=== PATIENT | male | born 1985 | race Two or more races ===

== ENCOUNTER 2018-10-03 20:18 | Inpatient (IN) | payer OTHER ==
[~2018-10-03] VITALS: Ht 188 cm; Wt 127.9 kg
[2018-10-03 20:34] VITALS: Ht 188 cm; Wt 127.9 kg
[2018-10-03 21:55] LABS: PLATELET COUNT 225 x10^3mcL (130-400); RED CELL DISTRIBUTION WIDTH 12.5 % (11.5-14.5)
[2018-10-03 22:00] LABS: CALCIUM 7.8 mg/dL (8.5-10.1); CARBON DIOXIDE 27.5 mmol/L (21-32); CHLORIDE SERUM 93 mmol/L (98-107); CREATININE SERUM 0.5 mg/dL (0.7-1.3); GFR1 > 60 mL/min; GLUCOSE SERUM 281 mg/dL (74-106); SODIUM SERUM 130 mmol/L (136-145)
[2018-10-03 22:04] LABS: ALKALINE PHOSPHATASE 84 U/L (46-116); ALT/SGPT 61 U/L (16-63); AST/SGOT 25 U/L (15-37); BILIRUBIN TOTAL 0.8 mg/dL (0.20-1.00); LIPASE 49 IU/L (73-393); TOTAL PROTEIN, SERUM 6.3 g/dL (6.4-8.2)
[2018-10-03 22:05] LABS: ALBUMIN 2.1 g/dL (3.4-5.0)
[2018-10-03 22:24] LABS: BAND NEUTROPHIL 20 % (0-10); METAMYELOCTE 1 % (0-2); MONOCYTE 10 % (0-7); SEGMENTED NEUTROPHILS 58 % (37-75)
[2018-10-03 22:28] LABS: PLATELET MORPHOLOGY PLATELETS NORMAL; rbc morphology (normal/abnorm) NORMAL (NORMAL)
[2018-10-04 00:25] LABS: T3 TOTAL 0.69 ng/mL
[2018-10-04 00:28] LABS: FREE T4 1.49 ng/dL (0.76-1.46); FREE THYROXINE INDEX 2.6 ug/dL (1.4-4.5); T4(THYROXINE) 6.4 ug/dL (4.7-13.3)
[2018-10-04 00:40] VITALS: BP 152/96
[2018-10-04 00:47] LABS: microscopic required? YES; urine erythrocyte NEGATIVE (NEGATIVE)
[2018-10-04 02:00] LABS: AMPHETAMINE QUAL UR NONE DETECTED (See below)
[2018-10-04 06:16] VITALS: BP 123/80
[2018-10-04 07:27] LABS: CALCIUM 7.8 mg/dL (8.5-10.1); CARBON DIOXIDE 25.7 mmol/L (21-32); CHLORIDE SERUM 96 mmol/L (98-107); CREATININE SERUM 0.5 mg/dL (0.7-1.3); GFR1 > 60 mL/min; GLUCOSE SERUM 263 mg/dL (74-106); POTASSIUM SERUM 3.5 mmol/L (3.5-5.1); SODIUM SERUM 132 mmol/L (136-145)
[2018-10-04 08:25] LABS: BASOPHIL % 0.2 % (0-2); PLATELET COUNT 224 x10^3mcL (130-400); RED CELL DISTRIBUTION WIDTH 12.9 % (11.5-14.5)
[2018-10-04 09:41] VITALS: BP 133/81
[2018-10-04 16:29] VITALS: BP 132/86
[2018-10-04 20:34] VITALS: BP 143/92
[2018-10-05 05:51] VITALS: BP 143/96
[2018-10-05 06:17] LABS: PLATELET COUNT 265 x10^3mcL (130-400); RED CELL DISTRIBUTION WIDTH 13.1 % (11.5-14.5)
[2018-10-05 06:42] LABS: BASOPHIL % 0 % (0-2)
[2018-10-05 07:07] LABS: CARBON DIOXIDE 24.9 mmol/L (21-32); CHLORIDE SERUM 97 mmol/L (98-107); CREATININE SERUM 0.5 mg/dL (0.7-1.3); GFR1 > 60 mL/min; GLUCOSE SERUM 226 mg/dL (74-106); MAGNESIUM 1.8 mg/dL (1.8-2.4); PHOSPHOROUS 3.1 mg/dL (2.5-4.9); POTASSIUM SERUM 3.4 mmol/L (3.5-5.1); SODIUM SERUM 133 mmol/L (136-145)
[2018-10-05 10:22] VITALS: BP 146/95
[2018-10-05 15:05] VITALS: BP 128/81
[2018-10-05 17:44] VITALS: BP 118/78
[2018-10-05 21:12] VITALS: BP 121/71
[2018-10-06 05:30] VITALS: BP 127/78
[2018-10-06 06:34] LABS: PLATELET COUNT 261 x10^3mcL (130-400); RED CELL DISTRIBUTION WIDTH 12.7 % (11.5-14.5)
[2018-10-06 06:36] LABS: CALCIUM 7.9 mg/dL (8.5-10.1); CARBON DIOXIDE 26.2 mmol/L (21-32); CHLORIDE SERUM 100 mmol/L (98-107); CREATININE SERUM 0.6 mg/dL (0.7-1.3); GFR1 > 60 mL/min; GLUCOSE SERUM 202 mg/dL (74-106); MAGNESIUM 1.6 mg/dL (1.8-2.4); POTASSIUM SERUM 3.3 mmol/L (3.5-5.1); SODIUM SERUM 133 mmol/L (136-145)
[2018-10-06] MEDS ORDERED: KEFLEX500 M1 PO (10:06)
[2018-10-06 10:27] VITALS: BP 152/98
[2018-10-06 11:48] VITALS: BP 152/98
[2018-10-06 11:56] LABS: ATYPICAL LYMPH 2 %; BAND NEUTROPHIL 19 % (0-10); BASOPHIL 0 % (0-2); MONOCYTE 7 % (0-7); SEGMENTED NEUTROPHILS 70 % (37-75)
[2018-10-06 11:57] LABS: rbc morphology (normal/abnorm) ABNORMAL (NORMAL)
[2018-10-06 11:58] LABS: PLATELET MORPHOLOGY PLATELETS NORMAL
[2018-10-06 12:57] VITALS: BP 152/98
== END 2018-10-06 14:09 | disposition home or self-care (01) | DRG 417 ==
LOC: ED 20:18 → MU 23:28
PROVIDERS: Emergency Medicine; Family Medicine; ADMIT Internal Medicine
PROC: 0FT44ZZ Resection of Gallbladder, Percutaneous Endoscopic Approach (ICD-10-PCS; principal; 2018-10-03)
DX: K80.10 Calculus of gallbladder with chronic cholecystitis without obstruction (principal); E43 Unspecified severe protein-calorie malnutrition; E87.1 Hypo-osmolality and hyponatremia; E87.6 Hypokalemia; E11.65 Type 2 diabetes mellitus with hyperglycemia; E05.90 Thyrotoxicosis, unspecified without thyrotoxic crisis or storm; I10 Essential (primary) hypertension; N20.0 Calculus of kidney; K76.0 Fatty (change of) liver, not elsewhere classified; D35.01 Benign neoplasm of right adrenal gland; Z68.35 Body mass index [BMI] 35.0-35.9, adult; Z79.84 Long term (current) use of oral hypoglycemic drugs
CPT/HCPCS: 36600; 82962; 84439; J0330; J1170; J1815; J1940; J1956; J2250; J2270; J2405; J2543; J2765; J3010; J3490; J7030; Q0092

== ENCOUNTER 2018-10-07 07:14 | Inpatient (IN) | payer OTHER ==
[~2018-10-07] VITALS: Ht 188 cm; Wt 153.8 kg
[2018-10-07 00:58] VITALS: BP 151/111
[~2018-10-07 07:14] MED LIST: KEFLEX500 M1 PO
--- NOTE | 2018-10-07 07:30 | NUR ---
PT PRESENTS TO ED WITH C/O SOB WITH N/V S/P CHOLECYSTECTOMY THURSDAY. PT WAS ADMITTED [place] [facility] [place] DIAGNOSED WITH GALLSTONES. PT WENT HOME YESTERDAY AND REPORTS ABD "SWELLING" IS WORSE WELL VOMITING COFFEE GROUND EMESIS PT DENIES ABD PAIN AT THIS TIME. PT IS AAOX4 RESP EVEN LABORED LUNGS CTA ABD IS ROUND FIRM AND DISTENDED 5 ABDOMINAL INCISIONS NOTED COVERED GAS DISPENSER TO ED WITH BANDAIDS. SKIN IN COOL PALE AND DIAPHORETIC. PT IS GOWNED PLACED ON FULL CM SINUS TACH PT IN POSITION OF COMFORT AT THIS TIME. FAMILY AT BEDSIDE MSE COMPLETED BY DR BOWMAN AWAITING FURTHER ORDERS WILL MONITOR.
--- NOTE | 2018-10-07 07:30 | NUR ---
LAB AT BEDSIDE FOR BLOOD DRAW.
--- NOTE | 2018-10-07 07:35 | NUR ---
EKG DONE BY AGUSTÍN ELIZABETH
--- NOTE | 2018-10-07 07:38 | NUR ---
ABG BLOOD DRAW IN PROGRESS
--- NOTE | 2018-10-07 07:50 | NUR ---
PT PLACED ON O2 AT 2L VIA NC
[2018-10-07 08:03] LABS: PLATELET COUNT 280 x10^3mcL (130-400); RED CELL DISTRIBUTION WIDTH 12.7 % (11.5-14.5)
--- NOTE | 2018-10-07 08:14 | NUR ---
PORTABLE CXR AT BEDSIDE AT THIS TIME
[2018-10-07 08:21] LABS: ALKALINE PHOSPHATASE 81 U/L (46-116); ALT/SGPT 89 U/L (16-63); AST/SGOT 25 U/L (15-37); BILIRUBIN TOTAL 0.85 mg/dL (0.20-1.00); CALCIUM 8.4 mg/dL (8.5-10.1); CARBON DIOXIDE 22.4 mmol/L (21-32); CHLORIDE SERUM 94 mmol/L (98-107); CREATININE SERUM 1.6 mg/dL (0.7-1.3); GFR1 53 mL/min; POTASSIUM SERUM 3.5 mmol/L (3.5-5.1); SODIUM SERUM 131 mmol/L (136-145); TOTAL PROTEIN, SERUM 6.3 g/dL (6.4-8.2)
[2018-10-07 08:25] LABS: T3 TOTAL 0.53 ng/mL
[2018-10-07 08:30] LABS: ALBUMIN 1.5 g/dL (3.4-5.0)
[2018-10-07 08:32] LABS: GLUCOSE SERUM 463 mg/dL (74-106)
--- NOTE | 2018-10-07 08:35 | NUR ---
1ST LITER OF NS BOLUS COMPLETED. PT TO CT AT THIS TIME VIA GURNEY WILL START 2ND NS BOLUS WHEN HE RETURNS. PT IN NO DISTRESS SINUS TACH ON CM AT 140'S ER MD NOTIFIED. NO NEW ORDERS WILL MONITOR
--- NOTE | 2018-10-07 08:50 | NUR ---
PT BACK FROM CT WITH NO INCIDENT. PT PLACED ON FULL CM AND O2 VIA NC AT 2L. NS 2ND LITER BOLUS STARTED AT THIS TIME. IV SITE PATENT. WILL MONITOR.
[2018-10-07 09:21] LABS: FREE T4 1.59 ng/dL (0.76-1.46)
--- NOTE | 2018-10-07 09:21 | NUR ---
NG TUBE INSERTION TO R NOSTRIL SUCCESSFULL COFFEE GROUND GI CONTENTS NOTED NG TUBE SECURED. PROCEDURE TOLERATED WELL BY PT.
[2018-10-07 09:22] LABS: FREE THYROXINE INDEX 2.2 ug/dL (1.4-4.5); T4(THYROXINE) 5.2 ug/dL (4.7-13.3)
--- NOTE | 2018-10-07 09:22 | NUR ---
CT RESULTS RECEIVED FROM LAB.
--- NOTE | 2018-10-07 09:27 | NUR ---
PORTABLE CXR FOR NG TUBE PLACEMENT CONFIRMATION IN PROGRESS
[2018-10-07 09:30] LABS: BAND NEUTROPHIL 43 % (0-10); BASOPHIL 0 % (0-2); SEGMENTED NEUTROPHILS 44 % (37-75)
[2018-10-07 09:31] LABS: PLATELET MORPHOLOGY PLATELETS NORMAL; rbc morphology (normal/abnorm) NORMAL (NORMAL)
[2018-10-07 09:32] LABS: ERYTHROCYTE SED RATE 35 mm/hr (0-15)
--- NOTE | 2018-10-07 09:39 | NUR ---
POC DISCUSSED WITH PT AND PTS SISTER.
[2018-10-07 09:47] LABS: CK-MB 1.1 ng/mL (0-3.6)
--- NOTE | 2018-10-07 10:15 | NUR ---
DR AZEVEDO AT BEDSIDE DISCUSSING PROCEDURE WITH FAMILY ASSESSING NG TUBE CONTENTS.
--- NOTE | 2018-10-07 10:18 | NUR ---
APPROX 500CC'S OF COFFEE GROUND EMESIS SUCTIONED. FROM NG TUBE.
--- NOTE | 2018-10-07 10:36 | NUR ---
1000ML'S OF COFFEE GROUND EMESIS SUCTIONED FROM NG TUBE
--- NOTE | 2018-10-07 10:36 | NUR ---
KUB PORTABLE XRAY AT BEDSIDE PER DR AZEVEDO VERBAL ORDERS TO ASSESS ABD DISTENTION POST 1000ML'S OF COFFEE GROUND CONTENTS SUCTIONED VIA NG TUBE
--- NOTE | 2018-10-07 10:44 | NUR ---
PT REPOSITIONED FOR PTS COMFORT. NG TUBE DRAINING SLOWLY BY GRAVITY INSTRUCTED BY DR AZEVEDO. PT IN NO DISTRESS DENIES ANY PAIN REMAINS ON FULL CM SINUS TACH WILL MONITOR
[2018-10-07 11:46] LABS: C REACTIVE PROTEIN 45.1 mg/dL (<=0.9)
--- NOTE | 2018-10-07 11:56 | NUR ---
AWAITING FOR OR STAFF TO TRANSPORT PT IN FOR SURGERY. PT AAOX4 NO DISTRESS SINUS TACH ON CM HR 136. PT DENIES ANY PAIN. NG TUBE NO LONGER DRAINING VIA GRAVITY, DENISSE VALVE RE-ATTACHED. NO ACTIVE N/V WILL CONTINUE TO MONITOR.
--- NOTE | 2018-10-07 12:19 | NUR ---
SPOKE TO KELLI IN OR. PT TO GO TO ICU UNIT FIRST BEFORE GOING TO OR. PT MADE AWARE
--- NOTE | 2018-10-07 12:22 | NUR ---
REPORT GIVEN TO DOTTIE BALTAZAR IN ICU FLOOR
--- NOTE | 2018-10-07 12:26 | NUR ---
PT TO ICU FLOOR VIA GURNEY ON PORTABLE CM SINUS TACH NO DISTRESS FAMILY ACCOMPANYING PT. DOTTIE BALTAZAR RESUMING CARE OF PT IN ICU
--- NOTE | 2018-10-07 12:30 | NUR ---
PT ARRIVED FROM ED VIA GURNEY AT THIS TIME ACCOMPANIED BY RN AND ERT. TRANSFERRED SELF TO ICU BED. AAOX4. SPEECH CLEAR AND APPROPRIATE. NO FACIAL DROOP. 2L NC IN PLACE. CHEST EXPANSION SYMM, BREATHING EVEN, LABORED. NO COUGH NOTED. RIGHT NGT SECURED AND INTACT. ABD DISTENDED, FIRM. VOIDS TO URINAL. NO EDEMA NOTED. CAP REFILL IMM. SODA DRY HOUSE OPERATOR ATTACHED, SINUS TACHYCARDIA HR 130-140. O2 SAT 91% ON MONITOR. PULSES MODERATE X4. EXTREMITIES WARM, DRY AND [place]. LFA 20G PERIPHERAL IV SITE WNL AND DRESSING CDI. BED IN LOWEST POSITION, CALL LIGHT WITHIN REACH AND THREE SIDERAILS UP.
--- NOTE | 2018-10-07 12:45 | NUR ---
O2 SAT 91% ON MONITOR. 2L NC INCREASED TO 4L NC. O2 SAT NOW 95%. PT ENCOURAGED TO TAKE DEEP BREATHS THROUGH NOSE. VERBALIZES UNDERSTANDING
--- NOTE | 2018-10-07 13:01 | NUR ---
REPORT GIVEN TO JODIE BOOM WORKER AT THIS TIME. ALL QUESTIONS ADDRESSED
--- NOTE | 2018-10-07 13:08 | NUR ---
JANNETH DRILLER MACHINE CALLED AT THIS TIME INFORMED OF ELEVATED GLUCOSE. SPOTCHECK ACCUCHECK BEING PERFORMED AT THIS TIME. DR. LAYNE REQUESTS BS <250
--- NOTE | 2018-10-07 13:10 | NUR ---
SPOT CHECK BS 328. A JAMA SEPTIC TANK SERVICE TECHNICIAN MADE AWARE. TELEPHONE ORDER FOR SLIDING SCALE INSULIN, ACCUCHEKS, D50 AND EDUCATION. REPEATED BACK AND CONFIRMED
--- NOTE | 2018-10-07 13:25 | NUR ---
SPOKE WITH ERNESTO ALARM SECURITY OR SURVEILLANCE MONITOR REGARDING BS. STATES THEY WILL SPOT CHECK IN OR.
--- NOTE | 2018-10-07 13:35 | NUR ---
PT TAKEN TO OR VIA BED AT THIS TIME BY JANNETH VETERANS SERVICE REPRESENTATIVE AND NATALIE FISHER ON CM.
[2018-10-07 13:44] VITALS: BP 131/78
[2018-10-07 16:02] LABS: CALCIUM 7.5 mg/dL (8.5-10.1); CARBON DIOXIDE 24.1 mmol/L (21-32); CHLORIDE SERUM 101 mmol/L (98-107); GFR1 > 60 mL/min; GLUCOSE SERUM 315 mg/dL (74-106); POTASSIUM SERUM 3.2 mmol/L (3.5-5.1); SODIUM SERUM 134 mmol/L (136-145)
[2018-10-07 17:07] LABS: PLATELET COUNT 251 x10^3mcL (130-400); RED CELL DISTRIBUTION WIDTH 13.1 % (11.5-14.5)
[2018-10-07 17:18] LABS: MONOCYTE 2 % (0-7); SEGMENTED NEUTROPHILS 67 % (37-75)
[2018-10-07 17:19] LABS: BAND NEUTROPHIL 15 % (0-10); BASOPHIL 0 % (0-2); PLATELET MORPHOLOGY PLATELETS NORMAL; rbc morphology (normal/abnorm) NORMAL (NORMAL)
[2018-10-07 17:26] LABS: CALCIUM 7.1 mg/dL (8.5-10.1); CARBON DIOXIDE 26.8 mmol/L (21-32); CHLORIDE SERUM 103 mmol/L (98-107); GFR1 > 60 mL/min; GLUCOSE SERUM 237 mg/dL (74-106); POTASSIUM SERUM 3.5 mmol/L (3.5-5.1); SODIUM SERUM 137 mmol/L (136-145)
[2018-10-07 17:32] LABS: ALKALINE PHOSPHATASE 58 U/L (46-116); ALT/SGPT 68 U/L (16-63); AST/SGOT 30 U/L (15-37); BILIRUBIN TOTAL 0.4 mg/dL (0.20-1.00); TOTAL PROTEIN, SERUM 3.9 g/dL (6.4-8.2)
--- NOTE | 2018-10-07 18:17 | NUR ---
DR. RAMÍREZ ON UNIT, INFORMED PT REMAINS IN OR AT THIS TIME. UPDATED ON PT'S STATUS. NO ORDERS AT THIS TIME
--- NOTE | 2018-10-07 19:10 | NUR ---
RECEIVED REPORT FROM DOTTIE BALTAZAR. PT REMAIMS IN OR AT THIS TIME
--- NOTE | 2018-10-07 20:12 | NUR ---
RECEIVED REPORT FROM VISITOR SERVICES SPECIALISTGIOVANNY CHANDLER. PT HAD A DIAGNOSTIC LAP CONVERTED TO EXPLORATORY LAP ENTEROTOMY FOR DECOMPRESSION TRANSVERESE COLON RESECTION OF OBSTRUCTING LEFT COLON TUMOR WITH ANASTOMOSIS AND TRANSVERSE COLOSTOMY AND JEFFREY DRAIN. PT UNDERWENT GENERAL ANESTHESIA. PT HAS ONE CLOSED INCISION WITH SUTURES AND RANI. INCISION IS COVERED WITH XEROFORM, 4X4 GAUZE, ABD PAD, TAPE, AND ABD BINDER. PT WAS INSERTED A 14 FR LOOMIS CATH, 500 ML OF TOTAL URINE OUTPUT. PT HAS A JEFFREY DRAIN SIZE 10. PT WAS NOT GIVEN ABX PREOP. EBL 200 ML. 7 BAGS OF LR WAS GIVEN. CURRENT VENT SETTINGS: AC MODE, VT 650, RR 12, PEP 10, FIO2 100%.
--- NOTE | 2018-10-07 21:25 | NUR ---
RECEIVED PT FROM OR ACCOMPANIED BY 2 OR NURSES AND ANESTHESIOLOGIST. PT CONNECTED TO FULL TEXTILE BROKER, VITALS READING: HR 170, BP 128/71 MAP 95, RR 29, SPO2 91%, AXILLARY TEMP 98.5. PT IS INTUBATED AND ON NO SEDATION. PT OPENS EYES TO TACTILE STIMULI. PT NOT FOLLOWING COMMANDS AT THIS TIME. PUPILS WITH SLUGGISH RESPONSE TO LIGHT, 3 MM BILAT. GAG REFLEX PRESENT. 80 ETT INTACT/SECURED, 23 CM @ LL. RIGHT NARE NGT IN PLACE, NGT PLACED ON LIS PER DR. AZEVEDO ORDER WITH COFFEE GROUND DRAINAGE NOTED. ETT CONNECTED TO VENT, VENT SETTINGS: VCV/AC MODE, VT 500, RATE 12, PEEP 5, FIO2 100%. BREATHING IS E/U. SYMMETRICAL CHEST EXPANSION NOTED. LUNGS SOUND CLEAR TO BUL AND DIMING TO BBA. PALPABLE PULSES X4 EXTREMITIES. PT IS DIAPHORETIC, SKIN IS COOL AND MOIST. NO EDEMA NOTED. RH AND LFA IV'S REMAIN IN PLACE WITH NO S/S OF INFILTRATION NOTED. RIJ CENTRAL LINE IN PLACE WITH DRESSING CDI, INFUSING LEVOPHED @ 24 MCG/MIN AND LR INFUSING. RIGHT RADIAL ARTERIAL LINE IN PLACE. CVP=7. ABD IS DISTENDED. LEFT ABDOMINAL INCISION WITH JEFFREY DRAIN IN PLACE DRAINING SANGUINOUS DRAINAGE, COVERED WITH ABD PAD AND BINDER WITH DRESSING CDI. RUQ ABD COLOSTOMY WITH JEFFREY DRAIN IN PLACE DRAINING SANGUINOUS DRAINAGE. BOWEL SOUNDS HYPOACTIVE X4 QUADDRANTS. LOOMIS IS INTACT/SECURED DRAINING VIA GRAVITY WITH LIEN COLORED URINE. NO SCROTAL EDEMA NOTED. ECCHYMOSIS NOTED TO BUE. BED IN LOW POSITION. CALL LIGHT IN REACH. WILL CONT TO MONITOR
--- NOTE | 2018-10-07 21:29 | NUR ---
NIBP 128/71 MAP 96. LEVOPHED TITRATED TO 18 MCG/MIN
--- NOTE | 2018-10-07 21:29 | NUR ---
ARTERIAL BP 128/71 MAP 96. LEVOPHED TITRATED TO 18 MCG/MIN
[2018-10-07 21:30] VITALS: BP 131/123
--- NOTE | 2018-10-07 21:30 | NUR ---
PER DR. DONOVAN, PT RECEIVED 350 MCG OF FENTANYL, 2 MG OF DILAUDID, 10 LITERS OF CRYSTALLOID FLUID, AND 500 ML OF ALBUMIN
--- NOTE | 2018-10-07 21:33 | NUR ---
ARTERIAL BP 131/123 MAP 126. LEVOPHED TITRATED TO 14 MCG/MIN
--- NOTE | 2018-10-07 21:33 | NUR ---
NIBP 131/123 MAP 126. LEVOPHED TITRATED TO 14 MCG/MIN
--- NOTE | 2018-10-07 21:33 | NUR ---
ARTERIAL BP 131/123 MAP 126. LEVOPHED TITRATED TO 14 MCG/MIN
--- NOTE | 2018-10-07 21:40 | NUR ---
X-RAY TECH AT BEDSIDE FOR CENTRAL LINE PLACEMENT VERIFICATION
--- NOTE | 2018-10-07 21:45 | NUR ---
ARTERIAL BP 107/47 MAP 74. LEVOPHED TITRATED TO 12 MCG/MIN
--- NOTE | 2018-10-07 21:45 | NUR ---
NIBP 107/47 MAP 74. LEVOPHED TITRATED TO 12 MCG/MIN
--- NOTE | 2018-10-07 22:00 | NUR ---
PT'S HR 160'S. PT OPENING EYES TO TACTILE STIMULI. VERSED INITIATED AT THIS TIME @ 1 MG/HR AND FENTANYL @ 1 MCG/KG/HR. WILL CONT TO MONITOR
--- NOTE | 2018-10-07 22:00 | NUR ---
ARTERIAL BP 82/35 MAP 55. LEVOPHED TITRATED TO 14 MCG/MIN
--- NOTE | 2018-10-07 22:17 | NUR ---
ARTERIAL MAP 61. LEVOPHED TITRATED TO 16 MCG/MIN
--- NOTE | 2018-10-07 22:18 | NUR ---
BOLUS INITITATED AT THIS TIME PER EMAR ORDER.
--- NOTE | 2018-10-07 22:18 | NUR ---
DR. TRUJILLO AT BEDSIDE. UPDATED ON PT'S STATUS. MADE AWARE PT'S HR IS IN THE 150'S AND THE BP MAP HAS BEEN TRENDING IN THE HIGH 50'S. PER DR. TRUJILLO, INFUSE 1 LITER BOLUS AT THIS TIME. SHE WILL ORDER NEOSYNEPHRINE. RECEIVED VERBAL ORDER FROM DR. CHAN TO NOT MAX LEVOPHED. WILL CARRY OUT ORDER
--- NOTE | 2018-10-07 22:30 | NUR ---
ARTERIAL BP 86/46 MAP 61. LEVOPHED TITRATED TO 18 MCG/MIN
--- NOTE | 2018-10-07 22:36 | NUR ---
NEOSYNEPRHINE INITIATED AT THIS TIME @ 50 MCG/MIN. ARTERIAL MAP 58.
--- NOTE | 2018-10-07 22:41 | NUR ---
DR. FINCH AT BEDSIDE. UPDATED ON PT'S STATUS. PER DR. FINCH, DC ROCEPHIN AND FLAGYL ABX. WILL CARRY OUT ORDER
--- NOTE | 2018-10-07 22:45 | NUR ---
PT IS OPENING EYES TO VERBAL STIMULI, ABLE TO FOLLOW COMMANDS AT THIS TIME. RSS=3. FENTANYL TITRATED TO 1.5 MCG/KG/HR AND VERSED TITRATED TO 3 MG/HR. WILL CONT TO MONITOR
--- NOTE | 2018-10-07 22:56 | NUR ---
ARTERIAL BP MAP 57. NEOSYNEPHRINE TITRATED TO 75 MCG/MIN
[2018-10-07 23:00] VITALS: BP 74/42; BP 81/44
--- NOTE | 2018-10-07 23:00 | NUR ---
ARTERIAL BP 74/42, MAP 55. NEOSYNEPHRINE TITRATED TO 75 MCG/MIN
--- NOTE | 2018-10-07 23:00 | NUR ---
ARTERIAL BP 74/42, MAP 55. NEOSYNEPHRINE TITRATED TO 100 MCG/MIN
--- NOTE | 2018-10-07 23:15 | NUR ---
ARTERIAL BP 81/44 MAP 58. NEOSYNEPHRINE TITRATED TO 100 MCG/MIN
--- NOTE | 2018-10-07 23:15 | NUR ---
ARTERIAL BP 81/44 MAP 58. NEOSYNEPHRINE TITRATED TO 100 MCG/MIN
--- NOTE | 2018-10-07 23:30 | NUR ---
ARTERIAL BP 85/45 MAP 60. NEOSYNEPHRINE TITRATED TO 125 MCG/MIN
--- NOTE | 2018-10-07 23:45 | NUR ---
ARTERIAL BP 83/44 MAP 59. NEOSYNEPHRINE TITRATED TO 150 MCG/MIN
--- NOTE | 2018-10-07 23:45 | NUR ---
ARTERIAL BP 83/77 MAP 59. NEOSYNEPHRINE TITRATED TO 125 MCG/MIN
[2018-10-08] VITALS (20 sets, daily range): BP systolic 79–121; BP diastolic 36–70
--- NOTE | 2018-10-08 | NUR ---
ARTERIAL BP 84/45 MAP 60. NEOSYNEPHRINE TITRATED TO 175 MCG/MIN
--- NOTE | 2018-10-08 00:15 | NUR ---
ARTERIAL BP 87/46, MAP 61. NEOSYNEPHRINE TITRATED TO 150 MCG/MIN
--- NOTE | 2018-10-08 00:45 | NUR ---
ARTERIAL BP 81/46 MAP 60. NEOSYNEPHRINE TITRATED TO 175 MCG/MIN
--- NOTE | 2018-10-08 01:15 | NUR ---
ARTERIAL BP 80/45 MAP 60. NEOSYNEPHRINE TITRATED TO 200 MCG/MIN
--- NOTE | 2018-10-08 01:15 | NUR ---
ARTERIAL BP 87/46 MAP 60. NEOSYNEPHRINE TITRATED TO 200 MCG/MIN
--- NOTE | 2018-10-08 01:20 | NUR ---
VASOPRESSIN INITIATED AT THIS TIME @ 0.1 UNITS/MIN. ARTERIAL MAP 57
--- NOTE | 2018-10-08 01:38 | NUR ---
ARTERIAL BP 58. VASOPRESSIN TITRATED TO 0.02 UNITS/MIN
--- NOTE | 2018-10-08 01:45 | NUR ---
ARTERIAL BP 77/43 MAP 57. NEOSYNEPHRINE TITRATED TO 225 MCG/MIN
--- NOTE | 2018-10-08 02:00 | NUR ---
ARTERIAL BP 82/46 MAP 61. VASOPRESSIN TITRATED TO 0.03 UNIT/MIN
--- NOTE | 2018-10-08 02:18 | NUR ---
ARTERIAL MAP 57. NEOSYNEPHRINE TITRATED TO 250 MCG/MIN
--- NOTE | 2018-10-08 02:29 | NUR ---
NOTIFIED DR. TRUJILLO PT'S CURRENT RATES ON LEVOPHED, NEOSYNYPRHINE, AND VASOPRESSIN. MADE AWARE PT HAS POOR URINE OUTPUT, ABOUT [address] TRUJILLO, WILL ORDER A SECOND BOLUS. MADE AWARE PT RECEIVED 10 LITERS IN THE OR. PER DR. TRUJILLO, WILL INFUSE 2ND BOLUS BEFORE BEGINNING FOURTH PRESSOR
--- NOTE | 2018-10-08 02:30 | NUR ---
NOTED PT WITH LABORED BREATHING-AGONAL BREATHING. ACCESSORY MUSCLE USE NOTED. RT AT BEDSIDE. PT'S CURRENT O2 SATURATION 95%. DR. TRUJILLO MADE AWARE. PER DR. TRUJILLO, WILL ORDER ABG
--- NOTE | 2018-10-08 02:45 | NUR ---
ARTERIAL BP 89/46 MAP 63. LEVOPHED TITRATED TO 20 MCG/MIN
--- NOTE | 2018-10-08 03:00 | NUR ---
AXILLARY TEMP 100.6. DR. TRUJILLO MADE AWARE. PER DR. TRUJILLO, WILL ORDER RECTAL SUPP TYLENOL
--- NOTE | 2018-10-08 03:05 | NUR ---
MARIE RT AT BEDSIDE. FIO2 TITRATED TO 80% PER ABG RESULTS. PT'S O2 SATURATION 95%. WILL CONT TO MONITOR
--- NOTE | 2018-10-08 03:06 | NUR ---
RECTAL TEMP NOTED TO BE 101.1. PT MEDICATED WITH RECTAL SUPP TYLENOL 650 MG. COOLING MEASURES IN PLACE. WILL CONT TO MONITOR
--- NOTE | 2018-10-08 03:07 | NUR ---
2ND LITER OF NS BOLUS INITIATED AT THIS TIME. ARTERIAL MAP 58
[2018-10-08 03:10] LABS: PLATELET COUNT 293 x10^3mcL (130-400); RED CELL DISTRIBUTION WIDTH 12.8 % (11.5-14.5)
[2018-10-08 03:11] LABS: CALCIUM 7.4 mg/dL (8.5-10.1); CARBON DIOXIDE 22.3 mmol/L (21-32); CREATININE SERUM 1.6 mg/dL (0.7-1.3); MAGNESIUM 1.3 mg/dL (1.8-2.4); POTASSIUM SERUM 4.1 mmol/L (3.5-5.1)
[2018-10-08 03:24] LABS: BAND NEUTROPHIL 21 % (0-10); MONOCYTE 2 % (0-7); SEGMENTED NEUTROPHILS 70 % (37-75)
[2018-10-08 03:27] LABS: acanthocyte (spur cell) 2+; rbc morphology (normal/abnorm) ABNORMAL (NORMAL)
--- NOTE | 2018-10-08 03:45 | NUR ---
ARTERIAL BP 85/44 MAP 60. VASOPRESSIN TITRATED TO 0.04 UNIT/MIN
--- NOTE | 2018-10-08 04:15 | NUR ---
ARTERIAL BP 83/42 MAP 58. LEVOPHED TITRATED TO 22 MCG/MIN
--- NOTE | 2018-10-08 04:23 | NUR ---
MARIE RT AT BEDSIDE. FIO2 TITRATED TO 70%. PT'S CURRENT O2 SATURATION 93%. WILL CONT TO MONITOR
--- NOTE | 2018-10-08 05:47 | NUR ---
MARIE RT AT BEDSIDE. TIDAL VOLUME CHANGED TO 650. PT'S CURRENT O2 SATURATION 93%. WILL CONT TO MONITOR
--- NOTE | 2018-10-08 06:30 | NUR ---
SPOKE TO DR. OSEI VIA TELEPHONE. UPDATED ON PT'S STATUS. PER DR. AZEVEDO, ORDER STAT CHEST X-RAY. WILL CARRY OUT ORDER
--- NOTE | 2018-10-08 06:38 | NUR ---
SPOKE TO DR. OSEI VIA TELEPHONE. PER DR. AZEVEDO, ORDER ALBUMIN 25% 100 ML Q6H. ORDER READ BACK AND IN AGREEMENT. WILL CARRY OUT ORDER
--- NOTE | 2018-10-08 06:41 | NUR ---
X-RAY TECH AT BEDSIDE
--- NOTE | 2018-10-08 06:50 | NUR ---
DR. COLIN AT BEDSIDE. UPDATED ON PT'S STATUS. DR. COLIN SPEAKING TO ALLERGIST/IMMUNOLOGIST JAMA AT THIS TIME FOR VERBAL ORDERS
--- NOTE | 2018-10-08 07:03 | NUR ---
THIRD LITER BOLUS INITIATED AT THIS TIME PER DR. COLIN ORDER. ARTERIAL MAP 58
--- NOTE | 2018-10-08 07:15 | NUR ---
REPORT GIVEN TO MIN RN FOR CONTINUITY OF CARE. ALL QUESTIONS/CONCERNS ADDRESSED AT THIS TIME. ENDORSING ALL CARE
--- NOTE | 2018-10-08 07:30 | NUR ---
IBP 105/40 MAP 61 HR 127 INCREASED LEAVOPHED FROM 22MCG/KG/MIN TO 24MCG/KG/MIN TO ACHIEVE MAP 65.
--- NOTE | 2018-10-08 08:30 | NUR ---
IBP 117/48 MAP 69 HR 134 DECREASE LEVOPHED FROM 24MCG/KG/MIN TO 22MCG/KG/MIN TO ACHIEVE MAP 65.
--- NOTE | 2018-10-08 08:44 | NUR ---
SPUTUM SAMPLE OBTAINED AND SENT TO LAB FOR PROCESSING.
--- NOTE | 2018-10-08 08:45 | NUR ---
IBP 116/51 MAP 72 HR 133 LOWERED LEVOPHED FROM 22MCG/KG/MIN TO 20MCG/KG/MIN TO ACHIEVE MAP 65.
--- NOTE | 2018-10-08 09:00 | NUR ---
BLADDER SCAN AT BEDSIDE, DUE TO ABD DRESSING, LIMITED SCAN. BLADDER SCAN INDICATE 42ML OF URINE. NOTIFIED EDIE ANGELES.
--- NOTE | 2018-10-08 09:05 | NUR ---
12ML DARK LIEN URINE SPECIMEN GIVEN TO CV TECH MARIA ISABEL FOR UA AND UCx
--- NOTE | 2018-10-08 09:25 | NUR ---
IBP 114/51 MAP 72 HR 130 LOWERED LEVOPHED FROM 20MCG/KG/MIN TO 19MCG/KG/MIN TO ACHIEVE MAP 65.
--- NOTE | 2018-10-08 09:26 | NUR ---
DR OSEI AT BEDSIDE TO ASSESS PATIENT. UPDATES PROVIDED BY NURSING.
[2018-10-08 09:37] LABS: PLATELET COUNT 222 x10^3mcL (130-400); RED CELL DISTRIBUTION WIDTH 12.9 % (11.5-14.5)
[2018-10-08 09:40] LABS: CALCIUM 7.4 mg/dL (8.5-10.1); CARBON DIOXIDE 22.6 mmol/L (21-32); CREATININE SERUM 1.8 mg/dL (0.7-1.3); MAGNESIUM 1.7 mg/dL (1.8-2.4); POTASSIUM SERUM 4.2 mmol/L (3.5-5.1)
--- NOTE | 2018-10-08 10:00 | NUR ---
RSS 5 LOWERED VERSED FROM 2MG/HR TO 1MG/KG AND FENTANYL FROM 1.5MCG/KG/HR TO 1MCG/KG/HR TO ACHIEVE RSS4.
[2018-10-08 10:13] LABS: UA SPECIFIC GRAVITY >=1.030 (1.005-1.035); microscopic required? YES; urine erythrocyte 2+ (NEGATIVE)
--- NOTE | 2018-10-08 10:15 | NUR ---
MADE AWARE TO EDIE JAMA SUPERVISOR BOTTLE MACHINES WBC 43, RECIEVED NO NEW ORDERS.
--- NOTE | 2018-10-08 10:30 | NUR ---
IBP 123/53 ,AP 76 HR 123 LOERED LEVOPHED FROM 18MCG/KG/MIN TO 16MCG/KG/MIN TO ACHIEVE MAP 65.
--- NOTE | 2018-10-08 10:42 | NUR ---
IBP 121/53 MAP 75 LOWERED LEVOPHED FROM 16MCG/KG/MIN TO 14MCG/KG/MIN TO ACHIEVE MAP 65.
--- NOTE | 2018-10-08 10:55 | NUR ---
IBP 135/55 MAP 86 LOWERED LEVOPHED FROM 14MCG/KG/MIN TO 12MCG/KG/MIN AND LOWERED NEOSYNEPHRINE FROM 250MCG/MIN TO 225MCG/MIN TO ACHIEVE MAP 65.
--- NOTE | 2018-10-08 11:17 | NUR ---
RECEIVING A PHONE CALL FROM STEAK TENDERIZER MACHINE SAYING THAT THE LACTIC LEVEL 2.7; THE PRIMARY NURSE, LYUDMILA IS MADE AWARE.
--- NOTE | 2018-10-08 11:24 | NUR ---
IBP 113/56 MAP 74 HR 124 DECREASED LEVOPHED FROM 10MCG/KG/MIN TO 8MCG/KG/MIN TO ACHIEVE MAP 65.
--- NOTE | 2018-10-08 11:26 | NUR ---
LACTIC ACID 2.7 MADE AWARE TO EDIE JAMA PRESS ASSISTANT AND FEEDER, RECIEVED NO NEW ORDERS.
[2018-10-08 11:28] LABS: BAND NEUTROPHIL 43 % (0-10); BASOPHIL 0 % (0-2); MONOCYTE 7 % (0-7); SEGMENTED NEUTROPHILS 45 % (37-75)
[2018-10-08 11:29] LABS: PLATELET MORPHOLOGY PLATELETS DECREASED
[2018-10-08 11:30] LABS: rbc morphology (normal/abnorm) ABNORMAL (NORMAL)
--- NOTE | 2018-10-08 12:00 | NUR ---
TOOTHETTES AND ORAL CLEANSER USED TO CLEAN PT'S MOUTH TO PREVENT VAP, PT BECAME AGITATED AND TACHYPNEIC TO HIGH 20'S WITH ATTEMPT TO SUCTION MOUTH. VERSED INCREASED TO 2 MG/HR AND FENTANYL TO 1.5 MCG/KG/HR.
--- NOTE | 2018-10-08 12:15 | NUR ---
IBP 106/49 MAP 69 HR 128 LOWERED LEVOPHED FROM 6MCMG/KG/MIN TO 4MC/KG/MIN.
--- NOTE | 2018-10-08 12:29 | NUR ---
IBP 105/52 MAP 70 HR 125 LOWERED LEVOPHED FROM 4 TO 2MCG/KG/MIN TO ACHIEVE MAP 65.
--- NOTE | 2018-10-08 13:00 | NUR ---
NOREPINEPHRINE TITRATED FROM 2 MCG/MIN UP TO 4 MCG/MIN FOR IBP 94/48 MAP 63, WILL CONTINUE TO MONITOR.
--- NOTE | 2018-10-08 13:00 | NUR ---
NOREPINEPHRINE TITRATED FROM 2 MCG/MIN UP TO 4 MCG/MIN FOR IABP 94/48, MAP 63.
--- NOTE | 2018-10-08 13:00 | NUR ---
PT SEDATED, INTUBATED AND UNABLE TO GIVE HIS OWN CONSENT FOR THE PLACEMENT OF A HEMODIALYSIS CATHETER, SO MOTHER OF PATIENT PROVIDED WRITTEN, INFORMED CONSENT. MOTHER AGREED TO HD CATHETER AND IS AWARE OF INDICATION, RISKS, AND BENEFITS.
--- NOTE | 2018-10-08 13:00 | NUR ---
DR. DE LEÓN SPOKE WITH FAMILY, EXPLAINED THE PLAN OF CARE AND PT'S POOR PROGNOSIS.
[2018-10-08 13:23] LABS: CALCIUM 7.3 mg/dL (8.5-10.1); CARBON DIOXIDE 25.3 mmol/L (21-32); CREATININE SERUM 1.9 mg/dL (0.7-1.3); MAGNESIUM 1.6 mg/dL (1.8-2.4); POTASSIUM SERUM 4.3 mmol/L (3.5-5.1)
[2018-10-08 13:32] LABS: PLATELET COUNT 203 x10^3mcL (130-400); RED CELL DISTRIBUTION WIDTH 13.3 % (11.5-14.5)
--- NOTE | 2018-10-08 13:43 | NUR ---
RECEIVING A PHONE CALL FROM RESIDENTIAL TECH INFORMING THAT PATIENT'S WBC LEVEL 38.8. MIN, THE PRIMARY NURSE IS MADE AWARE OF THE LEVEL.
[2018-10-08 13:48] LABS: BAND NEUTROPHIL 62 % (0-10); BASOPHIL 0 % (0-2); MONOCYTE 2 % (0-7); SEGMENTED NEUTROPHILS 31 % (37-75)
[2018-10-08 13:49] LABS: PLATELET MORPHOLOGY PLATELETS DECREASED; rbc morphology (normal/abnorm) NORMAL (NORMAL)
--- NOTE | 2018-10-08 14:37 | NUR ---
PROVIDED UPDATES TO DR. PRITCHARD, RECOMMENDED AN ECHO. RECIEVED NO OTHER NEW ORDERS.
--- NOTE | 2018-10-08 14:40 | NUR ---
IBP 107/53 MAP 71 HR 123 LOWERED LEVOPHED TO 2MCG/KG/MIN AND NEOSYNEPHRINE TO 200MCG/KG/MIN TO ACHIEVE MAP 65 PER PROTOCOL.
--- NOTE | 2018-10-08 15:37 | NUR ---
ECHO ATTEMPTED. BUT NOT ABLE TO COMPLETE STUDY DUE TO PATIENTS CURRENT CONDITION.
--- NOTE | 2018-10-08 15:46 | NUR ---
SCREEN FOR LOW SANGITA SCALE AT RISK PRESSURE ULCER INJURY PREVENTION INTERVENTIONS IN PLACE. -TURN AND REPOSITION PATIENT Q 2H OFFLOAD LEFT AND RIGHT HIPS -ASSESS AND MONITOR SKIN CONDITION DURING POSITION CHANGE -OFFLOAD BILATERAL HEELS BY PLACING PILLOWS UNDER CALVES AT ALL TIMES, UNLESS OTHERWISE CONTRAINDICATED -KEEP SKIN CLEAN AND DRY AT ALL TIMES.
--- NOTE | 2018-10-08 15:53 | NUR ---
SPOKE WITH PATIENT'S FATHER AND AUNT AND INFORMED THEM DR BOO AND EDIE ANGELES WOULD LIKE TO HAVE A FAMILY MEETING TOMORROW 10/09/2018 AT 1000. FAMILY IN AGREEMENT WITH MEETING. EDIE ANGELES MADE AWARE.
--- NOTE | 2018-10-08 16:37 | NUR ---
IBP 88/45 MAP 60 HR 128 INCREASED NEOSYNEPHRINE TO 225MCG/MIN TO ACHIEVE MAP 65.
--- NOTE | 2018-10-08 18:23 | NUR ---
DR. LELA MADSEN CALLED TELEPHONE ORDERS FOR ULTRASOUND, PRINT CONSENT AND GET CHITRA CATH. ULTRASOUND ORDERED.
--- NOTE | 2018-10-08 18:40 | NUR ---
PT IS SEDATED AND ORALLY INTUBATED. DR. FALLON MADSEN EXPLAINED INDICATIONS, BENITFITS, RISKS TO PT'S MOTHER. RISKS OF MININIAL BLEEDING, INFECTION. MOTHER AGREE TO PROCEDURE. ALL QUESTIONS AND CONCERNS ARE ADDRESSED.
--- NOTE | 2018-10-08 18:50 | NUR ---
TIME OUT AT BEDSIDE FOR QUITON CATH PLACEMENT. HUSBANDRY TECHNICIAN, DR. MADSEN ALL IN AGREEMENT FOR PT'S NAME, V#, M# AND PROCEDURE.
--- NOTE | 2018-10-08 19:04 | NUR ---
DR. MADSEN COMPLETED ROBB CATH PLACEMENT GAVE ORDER TO ORDER CXR TO CONFIRM PLACEMENT.
--- NOTE | 2018-10-08 19:12 | NUR ---
REPORT GIVEN TO JOLLY BALTAZAR, ENDORSE ALL CARE.
--- NOTE | 2018-10-08 19:40 | NUR ---
CXR AT BEDSIDE.
--- NOTE | 2018-10-08 22:20 | NUR ---
Spoke to Alethea ESCUDERO RN and she said that Dr. Auguste said it's ok to do HD tomorrow. Will continue to monitor.
[2018-10-09] VITALS (16 sets, daily range): BP systolic 92–142; BP diastolic 40–69
[2018-10-09 05:20] LABS: PLATELET COUNT 147 x10^3mcL (130-400); RED CELL DISTRIBUTION WIDTH 12.9 % (11.5-14.5)
[2018-10-09 05:30] LABS: CALCIUM 7.3 mg/dL (8.5-10.1); CARBON DIOXIDE 21.5 mmol/L (21-32); CREATININE SERUM 2.8 mg/dL (0.7-1.3); MAGNESIUM 1.7 mg/dL (1.8-2.4); PHOSPHOROUS 5.9 mg/dL (2.5-4.9); POTASSIUM SERUM 4.3 mmol/L (3.5-5.1)
[2018-10-09 05:45] LABS: MONOCYTE 1 % (0-7); SEGMENTED NEUTROPHILS 75 % (37-75)
[2018-10-09 05:47] LABS: BAND NEUTROPHIL 20 % (0-10); acanthocyte (spur cell) 3+; rbc morphology (normal/abnorm) ABNORMAL (NORMAL); schistocyte (helmet cell) 1+
[2018-10-09 05:48] LABS: PLATELET MORPHOLOGY PLATELETS DECREASED
--- NOTE | 2018-10-09 07:30 | NUR ---
EMPTIED 40ML OF LIEN URINE FROM LOOMIS. EMPTIED <5ML OF SEROSANGUINEOUS DRAINAGE TO R JEFFREY, EMPTIED 40ML OF SEROSANGUINEOUS FROM L JEFFREY.
--- NOTE | 2018-10-09 07:37 | NUR ---
ASSESSED PT AT BEDSIDE. PROVIDED VAP CARE. SCROTAL EDEMA, ELEVATED SCROTUM WITH PILLOW CASE TO DECREASE SWELLING.
--- NOTE | 2018-10-09 08:15 | NUR ---
JADEN ESCUDERO RN AT BEDSIDE SETTING UP. LABS, ORDER, 2L NS BAG PROVIDED TO RN.
--- NOTE | 2018-10-09 08:30 | NUR ---
PER DR. DE LEÓN'S TELEPHONE ORDERS TO ORDER 10,000U TO FLUSH ROBB CATH, WILL ENTER ORDERS.
--- NOTE | 2018-10-09 09:09 | NUR ---
PT IS BUCKING THE VENT, INCREASED VERSED TO 2MG/HR AND FENTANYL TO 1.5MCG/KG/HR.
--- NOTE | 2018-10-09 09:21 | NUR ---
PT IS TALL AND BED IS NOT LONG ENOUGH FOR PT'S HEIGHT, ADDED BED CULTURE MEDIA LABORATORY ASSISTANT TO PROVIDE COMFORT.
--- NOTE | 2018-10-09 09:25 | NUR ---
SANGITA SCORE 11 ADDED AIR PUMP TO AIR MATTRESS TO PREVENT SKIN BREAKDOWN.
--- NOTE | 2018-10-09 09:40 | NUR ---
IBP 103/38 MAP 62 HR 126 INCREASED LEVOPHED FROM 2MCG/KG/MIN TO 4MCG/KG/MIN TO ACHIEVE MAP 65.
--- NOTE | 2018-10-09 09:42 | NUR ---
INFORMED DR. BRAUN THAT CHITRA CATH IN USE FOR HD.
--- NOTE | 2018-10-09 10:15 | NUR ---
HD COMPLETED PER JADEN ESCUDERO RN NO FLUIDS WERE REMOVED. S/P HD VITAL SIGNS 120/48 MAP 63 HR 126.
--- NOTE | 2018-10-09 11:00 | NUR ---
DR. AZEVEDO AT BEDSIDE PROVIDED UPDATES OF R JEFFREY HAS TOTAL OF 20ML OF SEROSANGUINEOUS IN LAST 24HRS. DR. AZEVEDO D/C JEFFREY DRAIN. CLEANED COLONOSTOMY WITH HYRODGEN PEROXIDE AND CHANGED BAG. RECIEVED NO NEW ORDERS.
--- NOTE | 2018-10-09 12:26 | NUR ---
PT SHOWING S/S OF AGITATIONS EVIDENT BY HR 133 AND FACIAL GRIMACING INCREASED VERSED TO 3MG/HR.
--- NOTE | 2018-10-09 12:50 | NUR ---
IBP 119/43 MAP 69 HR 127 LOWERED LEVOPHED FROM 4MCG/KG/MIN TO 2MCG/KG/MIN TO ACHIEVE MAP 65.
--- NOTE | 2018-10-09 14:50 | NUR ---
IBP 126/44 MAP 72 HR 128 LEVOPHED TURNED OFF.
--- NOTE | 2018-10-09 15:00 | NUR ---
PROVIDED UPDATES TO DR. NUNEZ AND ASSESSED PT AT BEDSIDE. MD ORDERED LASIX IVP, AND ALBUMIN AND CHANGE MAINTANCE FLUIDS TO LACTATED RINGER AT 100ML/HR. WILL ENTER ORDER.
--- NOTE | 2018-10-09 15:58 | NUR ---
SPOKE WITH EDIE ANGELES AND REPORTED CHANGE IN PATIENT BREATH SOUNDS AND KALYN EXPANSION. NEW ORDERS RECEIVED FOR STAT CXR. ALSO SPOKE WITH EDIE REGARDING CLARIFICATION OF ORDER FOR ALBUMIN. PER OUR DISCUSSION, ADMINISTER 200 ML AT 30 ML/HR X 1 DOSE. PHARMACIST CONCHA MADE AWARE.
--- NOTE | 2018-10-09 16:20 | NUR ---
XRAY TECHS AT BEDSIDE FOR CXR PT HOB PUT TO HIGH FOWLERS FOR CXR AND REMAINS AT THAT ELEVATION
--- NOTE | 2018-10-09 17:25 | NUR ---
PROVIDED UPDATES TO DR. FINCH PT'S STATUS AND LAB RESULTS. PER DR. FINCH TO CONTINUE ABX TX.
--- NOTE | 2018-10-09 18:00 | NUR ---
PROVIDED LOOMIS CARE AND ERICK LOREDO TO [facility] CVC AND [facility] C[facility].
--- NOTE | 2018-10-09 20:00 | NUR ---
RECEIVED REPORT FROM GIOVANNY COREAS. PT IS ALERT AND RESPONSIVE TO VERBAL STIMULUS. INTUBATED AND SEDATED ON FENTANYL: 1.5 MCG/KG/HR AND VERSED 3 MG/HR. VENT SETTINGS INCLUDE: RATE: 12, TV: 650, O2: 50%, PEEP: 5. LUNG SOUNDS CLEAR TO BIALTERAL UPPER LOBES, DIMINISHED TO BILATERAL LOWER LOBES. L NGT PATENT, AND INTACT ATTACHED TO SUCTION. 8.0 ETT AT 23 CM AT LL. S1 S2 HEART SOUNDS AUSCULTATED. RIJ CVC PATENT, DRESSING CDI. RIGHT HAND AND LEFT FA PERIPHERAL IV PATENT, DRESSING CDI. NS INFUSING AT 10 ML/HR, LR INFUSING AT 100 ML/HR, ALBUMIN INFUSING AT 30 ML/HR. CAP REFILL <3 SECONDS X4. SKIN IS WARM AND CONSISTENT WITH ETHNICITY. PULSES WEAK X4. ABD IS SOFT AND ROUNDED WITH HYPOACTIVE BOWEL SOUNDS X4Q. PT HAS CENTER ABD INCISION WITH LEFT JEFFREY DRAIN AND ABD BINDER IN PLACE. SCD IN PLACE. LOOMIS DRAINING VIA GRAVITY WITH POOR OUTPUT. ALL QUESTIONS AND CONCERNS ANSWERED.
--- NOTE | 2018-10-09 20:04 | NUR ---
DR. BOO, EDIE [employer]AMA [employer] ADMINISTRATOR AT FAMILY MEETING, ENOCH, MOTHER, FATHER, SISTER AT MEETING. DR. BOO AND EDIE DISCUSSED PT'S CARE OF PLAN WITH FAMILY. EDIE AND DR. BOO ANSWERED AND CLARIFIED QUESTIONS AND CONCERNS OF PT'S CONDITION TO ENSURE THAT ALL PARTICIPANTS ARE ON THE SAME PAGE.
--- NOTE | 2018-10-09 20:12 | NUR ---
PROVIDED UPDATES TO DR. COLIN, PER DR. COLIN TO WEAN PT OFF VENT TO TITRATE FIO2 LOWERED. MADE AWARE TPP RT.
--- NOTE | 2018-10-09 20:13 | NUR ---
DOMINIC RT IN ROOM LOWERED FIO2 FROM 60% TO 50%.
--- NOTE | 2018-10-09 20:39 | NUR ---
REPORT GIVEN TO ONEL BALTAZAR, ENDORSED ALL CARE. ALL QUESTIONS AND CONCERNS ADDRESSED.
--- NOTE | 2018-10-09 22:27 | NUR ---
DOMINIC RT, DECREASED FIO2 FROM 50 TO 45%. WILL CONTINUE TO MONITOR.
[2018-10-10] VITALS (19 sets, daily range): BP systolic 113–160; BP diastolic 53–82
--- NOTE | 2018-10-10 00:41 | NUR ---
RT DOMINIC TITRATED FIO2 FROM 45% TO 40%. PT TOLERATING WELL. WILL CONTINUE TO MONITOR.
--- NOTE | 2018-10-10 05:30 | NUR ---
PROVIDED PATIENT WITH FULL BED BATH, LINEN CHANGE, AND SUCTION TUBING CHANGE. PT TOLERATED WELL. JEFFREY DRAIN AND COLOSTOMY BAG EMPTIED.
[2018-10-10 05:31] LABS: CALCIUM 7.9 mg/dL (8.5-10.1); CARBON DIOXIDE 24.1 mmol/L (21-32); CREATININE SERUM 3.6 mg/dL (0.7-1.3); MAGNESIUM 2.2 mg/dL (1.8-2.4); POTASSIUM SERUM 4.2 mmol/L (3.5-5.1)
[2018-10-10 05:33] LABS: RED CELL DISTRIBUTION WIDTH 13.3 % (11.5-14.5)
[2018-10-10 05:36] LABS: PLATELET COUNT 122 x10^3mcL (130-400)
[2018-10-10 05:55] LABS: ATYPICAL LYMPH 2 %; BAND NEUTROPHIL 8 % (0-10); METAMYELOCTE 3 % (0-2); MONOCYTE 4 % (0-7); SEGMENTED NEUTROPHILS 77 % (37-75)
[2018-10-10 05:59] LABS: PLATELET MORPHOLOGY PLATELETS NORMAL; rbc morphology (normal/abnorm) ABNORMAL (NORMAL)
--- NOTE | 2018-10-10 07:15 | NUR ---
PROVIDED REPORT TO GIOVANNY COREAS. ALL QUESTIONS AND CONCERNS ANSWERED.
--- NOTE | 2018-10-10 09:57 | NUR ---
ETT LIP LINE MOVE TO 22CM POST REPSITIONING PT, NOTIFIED RT. GUALBERTO AND KARLA RT ARE ADDING MORE AIR TO CUFF AND ADVACING ETT TO LL @23. CXR TO ORDER.
--- NOTE | 2018-10-10 10:00 | NUR ---
SPO2:91%. INCREASED FIO2:50%. SPO2:93%.
--- NOTE | 2018-10-10 10:15 | NUR ---
DR. COLIN WITH PULMONOLOGY AT BEDSIDE, REQUESTED PAUSING SEDATION TO DETERMINE NEURO STATUS. FENTANYL AND VERSED ARE PAUSED.
--- NOTE | 2018-10-10 10:37 | NUR ---
PT TACHYPNEIC AND TACHYCARDIC OFF OF SEDATION. HR 130S, RR 28. VERSED RESUMED AT 2MG/HR AND FENTANYL AT 1.5MCG/KG/HR. WILL CONTINUE TO MONITOR.
--- NOTE | 2018-10-10 10:38 | NUR ---
SPO2: 94%. TITRATED O2 TO 40%. SPO2:94
--- NOTE | 2018-10-10 11:00 | NUR ---
DR. OSEI AT BEDSIDE TO CHANGE SURGICAL DRESSING ON ABDOMEN AND DRESSING ON JEFFREY DRAIN INSERTION SITE. 2 ABD PADS COVER INCISION THAT IS PACKED WITH 2 BOTTLES OF 1 INCH WIDE IODOPHOR GAUZE. THE INCISION WAS CLEANED BY DR. OSEI WITH IODINE BEFORE PLACING NEW DRESSINGS. ABD PADS COVERED BY STRETCH ADHESIVE. A NEW ABDOMINAL BINDER WAS PUT IN PLACE TO PREVENT WOUND DEHISCENCE.
--- NOTE | 2018-10-10 11:34 | NUR ---
Intervention/RDN Recommendation(s): 1. If Pt is to continue intubated, consider initiating nutrition support if/when medically appropriate. 2. If/when medically appropriate and able to extubate, consider swallow eval. 3. If/when medically appropriate to start PO diet, consider CCHO diet in appropriate textures per MAIL DISTRIBUTOR recommendations.
--- NOTE | 2018-10-10 11:34 | NUR ---
Initial Nutrition Assessment- Dx: severe sepsis, upper GIB PMHx: no significant hx per H&P PSHx: cholecystectomy Labs: (10/10) Na 133 L, K 4.2, Glu 189 H, BUN 46, Cr 3.6 H, A1c 10.2 H, H/H 9.1/26. Meds: albuminar-25, D10%, flagyl, humulin R, lactated ringers, Lasix, levophed, norco, Pepcid, sodium chl 0.9%, solu-cortef, sublimaze, Tylenol, Zofran, zosyn Diet: NPO PO Intakes: N/A Ht: 187.96 cm/74 inches/6'2" Wt: 160 kg/352 pounds BMI: 40.6 kg/m2, morbid obesity IBW: 190 pounds/86 kg %IBW: 185% ADJBW: 231 pounds/105 kg UBW: Unable to obtain Age: 32 Food Allergies: NKFA Skin: North 19; 4 abd sx sites, sites WNL and dressings CDI Edema: None GI: Last BM prior to admission Pt admitted with dx: new onset DM, hyponatremia, severe malnutrition, class 2 obesity with fatty liver, likely new onset hyperthyroidism, likely adenoma of adrenal gland. Per physician progress note (10/10), Pt is s/p resection of transverse colon with transverse colostomy, partial left colon resection with anastomosis with 2x JEFFREY drains for decompression. Pt continues in ICU, mechanically vented. RDN Visit (10/10), Pt seen, on sedated on Versed. Pt nursing, Pt is s/p resection of colon. Pt may be considered for nutrition tomorrow, currently NPO x 4 days. Nursing Trigger - Admitted with potential risk dx Problem with: N: no V: no D: no C: no Problems with: Chewing: not known Swallowing: not known Current appetite: NPO Recent wt changes: unable to obtain Vitamin/Supplement: unable to obtain Special Diet at Home: unable to obtain Physical activity: unable to obtain Nutrition education given (specify specific nutrition education and handout given): Not appropriate at this time. Food-drug interactions? N/A Education given? N/A Estimated Nutritional Needs Based on adj BW of 105 kg. For those on ventilator support: Ventilator Settings 10.3 L/min Temperature: 99.9 F / 37.7 C Energy: 2908 kcal/d (PSU 2003b Protein: 160-210 gm/d (1.5-2.0 gm/kg for vent support, obesity) Fluid: 2908 mL/d (1 mL/kcal) or per MD. Nutrition Diagnosis 1. Inadequate protein/energy intakes related to NPO status x 4 days as evidenced by Pt meeting < 80% estimated nutrient needs. 2. Morbid obesity related to energy imbalance as evidenced by BMI of > 40 kg/m2; Pt with BMI of 40.6 kg/m2. Intervention/RDN Recommendation(s): 1. If Pt is to continue intubated, consider initiating nutrition support if/when medically appropriate. 2. If/when medically appropriate and able to extubate, consider swallow eval. 3. If/when medically appropriate to start PO diet, consider CCHO diet in appropriate textures per ELECTROLYTIC ETCHER recommendations. Monitor/Evaluate Goal: Intake via PO intakes to meet at least 75% of estimated needs with acceptable tolerance within 2-3 days. Monitor: PO intakes and/or nutrition support tolerance, Labs, GI function, Skin integrity, Weights. F/U in 2-3 days as high risk (10/12-)
--- NOTE | 2018-10-10 13:14 | NUR ---
CXR AT BEDSIDE TO CONFIRM ETT AND NG TO R R/T S/P ADVANCEMENT OF ETT.
--- NOTE | 2018-10-10 14:30 | NUR ---
DR. COLIN RETURNED TO BEDSIDE TO FOLLOW UP WITH SEDATION VACATION OUTCOME AND TO ASSESS PATIENT. MIN RN TOLD DR. COLIN THAT PT HR AND IBP INCREASED SHORTLY AFTER PAUSING FENTANYL AND VERSED.
--- NOTE | 2018-10-10 14:54 | NUR ---
DR. NUNEZ WITH PULMONOLOGY RETURNED TO BEDSIDE TO FOLLOW UP WITH SEDATION VACATION OUTCOME AND TO ASSESS PT. MIN RN TOLD DR. NUNEZ THAT PT HR AND IBP INCREASED SHORTLY AFTER PAUSING FENTANYL AND VERSED. NO NEW ORDERS RECEIVED.
--- NOTE | 2018-10-10 16:11 | NUR ---
RSS 3 INCREASED VERSED TO 4MG/HR TO ACHIEVE RSS 4.
[2018-10-11] VITALS (17 sets, daily range): BP systolic 126–163; BP diastolic 69–92
[2018-10-11 05:36] LABS: RED CELL DISTRIBUTION WIDTH 13.6 % (11.5-14.5)
[2018-10-11 05:42] LABS: CALCIUM 7.9 mg/dL (8.5-10.1); CREATININE SERUM 3.8 mg/dL (0.7-1.3); MAGNESIUM 2.1 mg/dL (1.8-2.4); PLATELET COUNT 128 x10^3mcL (130-400); POTASSIUM SERUM 4.3 mmol/L (3.5-5.1)
[2018-10-11 05:55] LABS: BAND NEUTROPHIL 3 % (0-10); METAMYELOCTE 3 % (0-2); MONOCYTE 5 % (0-7); MYELOCYTE 1 % (0-2); SEGMENTED NEUTROPHILS 82 % (37-75)
[2018-10-11 05:56] LABS: PLATELET MORPHOLOGY PLATELETS NORMAL; rbc morphology (normal/abnorm) NORMAL (NORMAL)
--- NOTE | 2018-10-11 07:30 | NUR ---
PATIENT IS IN BED, BED IS TO THE LOWEST POSITION. PATIENT IS INTUBATED, 8.0 ETT AT 26 LL. PATIENT IS ON AC MODE AT A RATE OF 12, TIDAL VOLUME OF 650, FIO2 OF 40% AND PEEP OF 5. PATIENT IS BREATHING ADEQUATELY AND THERE ARE NO SIGNS OF RESPIRATORY DISTRESS.PATIENT IS SEDATED ON FENTANYL INFUSING AT 1.5 MCG/KG/HR AND VERSED AT 6 MG/HR, RSS: 4. ANGLE SHEARER IN PLACE, ST. ABD IS ROUND AND DISTENDED WITH COLOSTOMY BAG NOTED, JEFFREY DRAIN NOTED AND ABD BINDER TO INCISION. LOOMIS INTACT AND DRAINING VIA GRAVITY, POOR OUTPUT OF LIEN COLOR URINE. PATIENT HAS TRACE EDEMA NOTED TO BUE AND BLE. SCROTAL EDEMA NOTED. PATIENT HAS R NARE NGT, WITH LOW INTERMITTENT SUCTION. RIJ NOTED, AND L ROBB. IV ACCESS TO R HAND AND LFA NOTED. LACTATED RINGERS INFUSING AT 100ML/HR. PATIENT IS ON AIR MATTRESS, HEELS OFF LOADED WITH PILLOWS. PATIENT STABLE, WILL CONTINUE TO MONITOR.
--- NOTE | 2018-10-11 08:47 | NUR ---
FENTANYL INCREASED TO 2 MCG/KG/HR. PATIENTS RESPIRATORY RATE HIGG. PATIENT STABLE, WILL CONTINUE TO MONITOR.
--- NOTE | 2018-10-11 11:17 | NUR ---
FENTANYL INCREASED TO 3 MCG/KG/HR AT THIS TIME. PATIENT ATTEMPTING TO PULL TUBE, AND HEART RATE INCREASING. PATIENT STABLE, WILL CONTINUE TO MONITOR.
--- NOTE | 2018-10-11 12:23 | NUR ---
DR GARCIA AT BEDSIDE, ALL UPDATES GIVEN. NO NEW ORDERS AT THIS TIME.
--- NOTE | 2018-10-11 12:27 | NUR ---
INCREASED VERSED TO 7 MH/HR, PATIENT AGITATED, ATTEMPTING TO PULL AT TUBES. WILL CONTINUE TO MONITOR.
--- NOTE | 2018-10-11 15:51 | NUR ---
PATIENT AGITATED AND IS ATTEMPTING TO PULL TUBE. INCREASED VERSED TO 9 MG/HR. WILL CONTINUE TO MONITOR. FAMILTY AT BEDSIDE, EDUCATED ON REMINDING THE PATIENT TO NOT PULL ON TUBE.
--- NOTE | 2018-10-11 18:10 | NUR ---
DR. COLIN AT BED SIDE AND DECREASED VT TO 550, FOLLOW UP ABG IN 30 MINUTES.
--- NOTE | 2018-10-11 18:31 | NUR ---
DR. COLIN AT BEDSIDE, ALL UPDATES PROVIDED. PER DR. COLIN, DO NOT TAKE OUT THE ARTERIAL LINE AT THIS TIME. HE WILL LIKE A BLOOD GAS. ALSO TIDAL VOLUME FOR PATIENT LOWERED TO 550. RT AT BEDSIDE, AND MADE AWARE.
--- NOTE | 2018-10-11 19:12 | NUR ---
REPORT GIVEN TO GIOVANNY WARD. ALL QUESTIONS ANSWERED.
--- NOTE | 2018-10-11 19:12 | NUR ---
RECEIVED REPORT FROM ALLY BALTAZAR. ASSUMING ALL CARE
--- NOTE | 2018-10-11 19:15 | NUR ---
RECEIVED PT INTUBATED AND SEDATED ON FENTANYL @ 1.5 MCG/KG/HR AND VERSED @ 9 MG/HR. RSS=4. PT RESPONDS TO TACTILE STIMULI. PT DOES NOT FOLLOW COMMANDS, DOES NOT TRACK. GAG REFLEX PRESENT. PUPILS WITH BRISK RESPONSE TO LIGHT, 4 MM BILAT. 8.0 ETT INTACT/SECURED, 26 CM @ LL. RIJ CVC IN PLACE WITH DRESSING CDI. RIGHT NARE NGT INTACT/SECURED, CONNECTED TO LIS WITH GREEN COLORED DRAINAGE NOTED. ORAL CARE PROVIDED PER VAP PROTOCOL. LIJ ROBB IN PLACE WITH DRESSING CDI. BREATHING IS E/U ON VENT. VENT SETTINGS: VCV AC MODE, RATE 16, VT 550, PEEP 5, FIO2 40%. COURSE CRACKLES NOTED TO BUL AND DIMIN TO BLL. SYMMETRICAL CHEST EXPANSION NOTED. S1/S2 HEART SOUNDS AUSCULTATED. CHEST WALL EQUAL AND SYMMETRICAL. NO S/S OF CP NOTED. PT CONNECTED TO FULL CARDIAC MONITR, HR 121 BP 156/74 MAP 97. CVP 11. RIGHT RADIAL ARTERIAL LINE IN PLACE. PALPABLE PULSES X4 EXTREMITIES. SKIN IS WARM AND DRY. +3 PITTING EDEMA NOTED TO BLE, NONPIT TO BUE. RH AND RFA IV'S REMAIN IN PLACE, SALINE LOCKED SCD REMAIN IN PLACE. LR INFUSING @ 100 ML/HR. PT ON BEDREST. GENERALIZED WEAKNESS. NO JOINT SWELLING/DEFORMITY NOTED. PT IS NPO AT THIS TIME. ABD IS DISTENDED/FIRM. BOWEL SOUNDS HYPOACTIVE X4 QUADRANTS. LEFT ABD INCISION WITH JEFFREY DRAIN WITH SEROSANGUINOUS DRAINAGE NOTED, ABD PAD AND BINDER IN PLACE WITH DRESSING CDI. RUQ COLOSTOMY BAG WITH BROWN COLORED STOOL NOTED. LOOMIS IS INTACT/SECURED, DRAINING VIA GRAVITY WITH LIEN COLORED URINE. SCROTAL EDEMA NOTED. LIJ ROBB IN PLACE. PT RECEIVING HEMODIALYSIS AT THIS TIME. LEFT ABD INCISION WITH JEFFREY DRAIN WITH SANGUINOUS DRAINAGE NOTED, ABD PAD AND BINDER IN PLACE WITH DRESSING CDI. ECCHYMOSIS NOTED TO BUE. ERYTHEMA NOTED TO SACRAL AREA, OPTIFOAM IN PLACE. PT REPOSITIONED Q2H AND PRN FOR COMFORT. PT ON ISOGEL MATTRESS. FAMILY AT BEDSIDE. BED IN LOW POSTIION. CALL LIGHT IN REACH. WILL CONT TO MONITOR
--- NOTE | 2018-10-11 19:20 | NUR ---
HEMODIALYSIS COMPLETED AT THIS TIME. 2 LITERS WERE REMOVED. NO S/S OF ACUTE DISTRESS NOTED. WILL CONT TO MONITOR
--- NOTE | 2018-10-11 19:30 | NUR ---
RIGHT WRIST ARTERIAL LINE REMOVED AT THIS TIME PER ORDER. WRIST SECURED WITH GAUZE. NO S/S OF ACUTE DISTRESS NOTED. WILL CONT TO MONITOR
--- NOTE | 2018-10-11 20:36 | NUR ---
RT ACOSTA AT BEDSIDE. VENT RATE CHANGED TO 12 PER ORDER.
--- NOTE | 2018-10-11 21:51 | NUR ---
PT IS RESTLESS AT THIS TIME. ATTEMPTING TO PULL ON ETT. PT EDUCATED ON IMPORTANCE OF NOT PULLING ON ANY LINES/ETT. VERSED TITRATED TO 10 MG/HR. FAMILY AT BEDSIDE. WILL CONT TO MONITOR
--- NOTE | 2018-10-11 22:29 | NUR ---
PT IS RESTLESS. TACHYPNEIC. RR=35-39. PT'S O2 SATURATION 95%. VERSED TITRATED TO 11 MCG/MIN. WILL CONT TO MONITOR.
--- NOTE | 2018-10-11 23:01 | NUR ---
PT IS RESTLESS. ATTEMPTING TO PULL ON ETT. PT EDUCATED ON IMPORTANCE OF NOT PULLING ON ETT. VERSED TITRATED TO 12 MCG/MIN. PT PLACED ON BILAT SOFT WRIST RESTRAINTS FOR PT SAFETY. GOOD CIRCULATION NOTED. CONSENT OBTAINED FROM FAMILY AND PLACED IN CHART. WILL CONT TO MONITOR.
--- NOTE | 2018-10-11 23:45 | NUR ---
RSS=5. PT IS CALM AT THIS TIME. VERSED TITRATED TO 11 MCG/MIN. WILL CONT TO MONITOR
--- NOTE | 2018-10-11 23:57 | NUR ---
DR. FINCH AT BEDSIDE. UPDATES PROVIDED. NO NEW ORDERS
[2018-10-12] VITALS (18 sets, daily range): BP systolic 120–167; BP diastolic 69–95
--- NOTE | 2018-10-12 00:37 | NUR ---
PT'S RR 45-49. PT IS RESTLESS. VERSED TITRATED TO 12 MG/HR
--- NOTE | 2018-10-12 03:10 | NUR ---
RSS=5. VERESED TITRATED TO 11 MG/HR. WILL CONT TO MONITOR
--- NOTE | 2018-10-12 04:05 | NUR ---
RSS=5. VERSED TITRATED TO 10 MG/HR. WILL CONT TO MONITOR
--- NOTE | 2018-10-12 05:10 | NUR ---
MOLDER APPRENTICE AT BEDSIDE FOR AM LAB DRAW
[2018-10-12 05:35] LABS: PLATELET COUNT 154 x10^3mcL (130-400); RED CELL DISTRIBUTION WIDTH 13.5 % (11.5-14.5)
[2018-10-12 05:36] LABS: BASOPHIL % 0 % (0-2)
[2018-10-12 05:50] LABS: CALCIUM 8.1 mg/dL (8.5-10.1); CARBON DIOXIDE 25.1 mmol/L (21-32); MAGNESIUM 2.1 mg/dL (1.8-2.4); POTASSIUM SERUM 4.1 mmol/L (3.5-5.1)
--- NOTE | 2018-10-12 05:50 | NUR ---
FULL BED BATH PROVIDED WITH ERICK WIPES. GOWN AND LINEN CHANGED. PERICARE, ORAL, AND LOOMIS CARE PROVIDED. HEELS OFFLOADED. SCD REAPPLIED. FAMILY AT BEDSIDE. BED IN LOW POSITION. CALL LIGHT IN REACH. WILL CONT TO MONITOR
--- NOTE | 2018-10-12 07:02 | NUR ---
REPORT GIVEN TO DOTTIE BALTAZAR FOR CONTINUITY OF CARE. ALL QUESTIONS/CONCERNS ADDRESSED AT THIS TIME. ENDORSING ALL CARE
--- NOTE | 2018-10-12 08:15 | NUR ---
PT EXTREMELY RESTLESS. BITING ON ETT AND GRIMACING. PER FLACC PAIN 11/10 AT [facility]. WILL ADMINISTER MEDICATION PER EMAR
--- NOTE | 2018-10-12 08:25 | NUR ---
Jasmine HERBERT CUSTOMER SERVICE ASSOCIATE AT BEDSIDE SPEAKING WITH PT'S SISTER, UPDATES PROVIDED AND ALL QUESTIONS ADDRESSED. ASKED REGARDING FEEDING FOR PT. STS SHE WILL INPUT ORDERS FOR TPN
--- NOTE | 2018-10-12 09:22 | NUR ---
SPOKE WITH PT'S SISTER, UPDATED ON STATUS. ALL QUESTIONS ADDRESSED
--- NOTE | 2018-10-12 10:26 | NUR ---
DR. OSEI AT BEDSIDE TO ASSESS PT. UPDATED ON STATUS AND CONDITION. INFORMED OF LARGE AMOUNT OF OGT RESIDUAL. STATES PT NEEDS KUB.
--- NOTE | 2018-10-12 15:16 | NUR ---
DR. Rianna DE LEÓN AT BEDSIDE TO ASSESS PT. UPDATED ON PT'S STATUS AND CONDITION. STATES TO DISCONTINUE LR IVF AT THIS TIME AND PLAN OF CARE IS FOR HEMODIALYSIS TOMORROW.
--- NOTE | 2018-10-12 16:50 | NUR ---
LULU RESULTS REVIEWED WITH Jasmine HERBERT NP. STATES WILL FOLLOW UP TOMORROW MORNING.
--- NOTE | 2018-10-12 19:05 | NUR ---
RECEIVED REPORT FROM DOTTIE BALTAZAR. ASSUMING ALL CARE
--- NOTE | 2018-10-12 19:39 | NUR ---
RECEIVED PT INTUBATED AND SEDATED ON FENTANYL @ 1.5 MCG/KG/HR AND VERSED @ 12 MG/HR. RSS=4. PT OPENS EYES TO VERBAL STIMULI. PT DOES NOT FOLLOW COMMANDS/DOES NOT TRACK. GAG REFLEX PRESENT. PUPILS WITH BRISK RESPONSE TO LIGHT, 4 MM BILAT. 8.0 ETT INTACT/SECURED, 26 CM @ LL. RIJ CVC IN PLACE WITH DRESSING CDI. RIGHT NARE NGT INTACT/SECURED, CONNECTED TO LIS WITH GREEN COLORED DRAINAGE NOTED. DRY ORAL MUCOSA, ORAL CARE PROVIDED PER VAP PROTOCOL. LIJ ROBB IN PLACE WITH DRESSING CDI. SCANT AMOUNT OF CLEAR DRAINAGE NOTED WHEN SUCTIONED. BREATHING IS E/U ON VENT. VENT SETTINGS: VCV AC MODE, RATE 12, VT 550, PEEP 5, FIO2 40%. COURSE CRACKLES NOTED TO BUL AND DIMIN LUNG SOUNDS NOTED TO BLL. SYMMETRICAL CHEST EXPANSION NOTED. S1/S2 HEART SOUNDS AUSCULTATED. CHEST WALL EQUAL AND SYMMETRICAL. NO S/S OF CP NOTED. PT CONNECTED TO FULL CARDIAC MONITR, HR 122, BP 156/86 MAP 115. CVP= 8. PALPABLE PULSES X4 EXTREMITIES. SKIN IS WARM AND DRY. +3 PITTING EDEMA NOTED TO BLE, +1 PITTING BUE. RH AND RFA IV'S REMAIN IN PLACE, SALINE LOCKED. SCD IN PLACE. PT ON BEDREST. GENERALIZED WEAKNESS. NO JOINT SWELLING/DEFORMITY NOTED. PT PLACED ON BILAT SOFT WRIST RESTRAINT FOR PT SAFETY, GOOD CIRCULATION NOTED. ISOGEL MATTRESS IN PLACE. PT IS NPO AT THIS TIME. ABD IS DISTENDED/FIRM. BOWEL SOUNDS HYPOACTIVE X4 QUADRANTS. LEFT ABD INCISION WITH JEFFREY DRAIN WITH DARK BROWN DRAINAGE NOTED, ABD PAD AND BINDER IN PLACE WITH DRESSING CDI. RUQ COLOSTOMY BAG WITH BROWN COLORED STOOL NOTED. LOOMIS IS INTACT/SECURED, DRAINING VIA GRAVITY WITH LIEN COLORED URINE. SCROTAL EDEMA NOTED. LEFT ABD INCISION WITH JEFFREY DRAIN WITH SANGUINOUS DRAINAGE NOTED, ABD PAD AND BINDER IN PLACE WITH DRESSING CDI. ECCHYMOSIS NOTED TO BUE. PT REPOSITIONED Q2H AND PRN FOR COMFORT. FAMILY AT BEDSIDE. BED IN LOW POSITION. CALL LIGHT IN REACH. WILL CONT TO MONITOR
--- NOTE | 2018-10-12 20:00 | NUR ---
DR. COLIN AT BEDSIDE. UPDATED ON PT'S STATUS. DR. COLIN SPEAKING WITH THE FAMILY IN REGARDS TO POC. ALL QUESTIONS/CONCERNS ADDRESSED AT THIS TIME.
--- NOTE | 2018-10-12 20:20 | NUR ---
PT IS RESTLESS/TACHYPNEIC, RR=40. VERSED TITRATED TO 13 MG/HR. WILL CONT TO MONITOR
--- NOTE | 2018-10-12 23:15 | NUR ---
RECTAL TEMP 99.8. COOLING MEASURES IN PLACE. WILL CONT TO MONITOR
--- NOTE | 2018-10-12 23:45 | NUR ---
DR. FINCH AT BEDSIDE. UPDATED ON PT'S STATUS. NO NEW ORDERS
[2018-10-13] VITALS (17 sets, daily range): BP systolic 105–177; BP diastolic 63–98
--- NOTE | 2018-10-13 02:10 | NUR ---
FULL BED BATH PROVIDED. GOWN AND LINENS CHANGED. PERICARE, ORAL, AND LOOMIS CARE PROVIDED. HEELS OFFLOADED. SCD IN PLACE. FAMILY AT BEDSIDE. BED IN LOW POSITION. CALL LIGHT IN REACH. WILL CONT TO MONITOR
--- NOTE | 2018-10-13 04:10 | NUR ---
PT IS CALM AT THIS TIME. VERSED TITRATED TO 12 MG/HR.
--- NOTE | 2018-10-13 05:15 | NUR ---
PT REMAINS CALM. RR=18. VERSED TITRATED TO 11 MG/HR
[2018-10-13 05:28] LABS: BASOPHIL % 0.1 % (0-2); PLATELET COUNT 172 x10^3mcL (130-400); RED CELL DISTRIBUTION WIDTH 13.4 % (11.5-14.5)
[2018-10-13 05:45] LABS: CALCIUM 7.6 mg/dL (8.5-10.1); CARBON DIOXIDE 26.5 mmol/L (21-32); POTASSIUM SERUM 4.2 mmol/L (3.5-5.1)
[2018-10-13 05:53] LABS: CREATININE SERUM 5.2 mg/dL (0.7-1.3)
--- NOTE | 2018-10-13 07:10 | NUR ---
REPORT GIVEN TO LYUDMILA RN AND MADHU BALTAZAR FOR CONTINUITY OF CARE. ALL QUESTIONS/CONCERNS ADDRESSED AT THIS TIME. ENDORSING ALL CARE
--- NOTE | 2018-10-13 08:00 | NUR ---
VAP CARE PROVIDED PER PROTOCOL
--- NOTE | 2018-10-13 08:30 | NUR ---
MARIE RT TURNED PT FIO2 DOWN TO 30% FROM 40%
--- NOTE | 2018-10-13 09:00 | NUR ---
DR. OSEI IN ROOM, CHANGED ABDOMINAL DRESSING USING ASEPTIC TECHNIQUE. REMOVED ABD DRESSING AND IODOFORM FROM ABD. CLEASED ABD WOUND WITH IODINE. PUT NEW 1 INCH IODOFORM INTO ABD SURGICAL SITES WITH PETROLEUM DRESSING OVER INCISION AND ABD PAD. DRESSING REINFORCED WITH FOAM TAPE . JEFFREY TO L ABD WITH SUCTION PRESENT. DR. OSEI PERFORMED A RECTAL EXAM AT BEDSIDE. PT HAD A BOWEL MOVEMENT OF LIQUID DARK BLOODY STOOL. EBL 200ML. FOUL ODOR NOTED TO STOOL. RECOMMENDED MD TO REPEAT H&H.
--- NOTE | 2018-10-13 10:00 | NUR ---
REPOSITION PT AND CHANGE OPTIFOAM, DTI NOTED TO SACRAL, SKIN INTACT. OPTIFOAM APPLIED. PICTURE TAKEN AND FILE IN CHART.
--- NOTE | 2018-10-13 10:20 | NUR ---
PT BUCKING VENT, INCREASED VERSED FROM 11MG/HR TO 13MG/HR.
--- NOTE | 2018-10-13 10:26 | NUR ---
PT RECEIVED A BOLUS OF 2MG VERSED DUE TO AGITATION. PT TACHYPNEIC AND TACHYCARDIC PRIOR TO BOLUS, WILL CONTINUE TO MONITOR FOR SIGNS OF AGITATION.
[2018-10-13 10:30] LABS: PLATELET COUNT 196 x10^3mcL (130-400); RED CELL DISTRIBUTION WIDTH 13.5 % (11.5-14.5)
--- NOTE | 2018-10-13 10:50 | NUR ---
PT'S HR TRENDING HIGH 140'S AND TACHYPEANIC RR IN 30'S INCREASED VERSED TO 15MG/HR TO ACHIEVE RSS 4.
--- NOTE | 2018-10-13 10:57 | NUR ---
MADE AWARE TO RIOLODGY STAT CXR ORDERED FOR BEDSIDE.
--- NOTE | 2018-10-13 11:13 | NUR ---
CXR AT BEDSIDE.
--- NOTE | 2018-10-13 11:47 | NUR ---
AXILLARY TEMP 100.6, COOLING MEASURES STARTED. SHEETS REMOVED, WILL MEDICATE PER EMAR.
--- NOTE | 2018-10-13 11:48 | NUR ---
VAP CARE PROVIDED PER PROTOCOL
[2018-10-13 12:38] LABS: BAND NEUTROPHIL 9 % (0-10); BASOPHIL 0 % (0-2); MONOCYTE 3 % (0-7); PLATELET MORPHOLOGY PLATELETS DECREASED; SEGMENTED NEUTROPHILS 88 % (37-75)
[2018-10-13 12:39] LABS: rbc morphology (normal/abnorm) ABNORMAL (NORMAL)
--- NOTE | 2018-10-13 13:28 | NUR ---
FFP VERIFIED WITH MAY RN AT BEDSIDE. CORRECT PRODUCT AND PT VERIFIED. FFR AT 250ML/HR. NO SIGNS OF ADVERSE REACTIONS.
--- NOTE | 2018-10-13 13:44 | NUR ---
Follow-up Nutrition Assessment- Dx: Severe Sepsis, Upper GI bleed Labs: (10/13) BG 256H, BUN 70H, Cre 5.2H, Ca 7.6L, WBC 11.9H, H/H 8.2L/24L Meds: D10% IV, Humulin R, Pepcid, Solu-cortef, Zofran, Heparin Diet: NPO since admission (10/07) Nutrition Support: D10% AA 4.25% at 80ml/hr via Central line I/O: (10/12) 4100/1425 +2675, (10/11) 1753/260 +1493 Gastric Drainage: (10/13) 1300; (10/12) 1100; (10/11) 0 TPN intake: no record 10/12 Weights: (10/13) 154 kg, (10/12) 151.5 kg, (10/10) 160 kg Skin: L abd w/ incision, ecchymosis to BUE. North:12 Edema: 3+ pitting edema to BLE, 1+ pitting edema to BUE, scrotal edema. Last BM: 10/13/18, pt w/ colostomy bag, brown colored stool noted by RN. Pt remains intubated, on vent. Per provider's progress notes, pt does not tolerate weaning at this time. RN at bedside providing care during RD visit. RN reported that pt has been on TPN since Thursday. Pt is not yet meeting adequate nutrition w/ current NPO status and TPN regimen. RD s/w pharmacist for new rec. Estimated Nutritional Needs based on CBW 164.65 kg, Ve: 9.26, T: 37.7'C Energy: 2924 kcal/d (PSU for ICU pt on vent support) Protein: 129-172g/d (1.5-2 g/kg- IBW for Obesity and sepsis) Fluid: 2924 mL/d (1 mL/kcal or per MD order-for fluid balance and maintenance) Nutrition Diagnosis 1. Inadequate protein/energy intake r/t NPO status AEB pt meeting <80% of estimated nutrient needs. (*improving w/ TPN support) 2. Morbid obesity r/t energy imbalance AEB BMI of >40 kg/m2. (*ongoing) Intervention 1. Recommend D25% AA 5% at 100ml/hr (goal rate) via central line. Provides: 2520 kcal, 120 gm protein and GIR 2.5 gm CHO/kg/min Meets: 86% of estimated calorie needs and 93% of lower end of estimated protein needs. Monitor/Evaluate Previous goal: PO intake at least 75% of estimated needs (*not met) Goal: PO intake at least 80-100% of estimated needs Monitor: PO intake, Labs, GI function, skin integrity/wt maintenance F/U in 2-3 days as high risk (10/15-10/16)
--- NOTE | 2018-10-13 13:44 | NUR ---
1. Recommend D25% AA 5% at 100ml/hr (goal rate) via central line. Provides: 2520 kcal, 120 gm protein and GIR 2.5 gm CHO/kg/min Meets: 86% of estimated calorie needs and 93% of lower end of estimated protein needs. RD s/w DRAPERY OPERATOR and pharmacist for rec for TPN support.
--- NOTE | 2018-10-13 13:45 | NUR ---
NO SIGNS OF ADVERSE REACTIONS, INCREASED FFO TO 400ML/HR.
--- NOTE | 2018-10-13 13:49 | NUR ---
HR TRENDING 150'S WILL MEDICATE PER EMAR.
--- NOTE | 2018-10-13 13:56 | NUR ---
HR 153, METOPROLOL 2.5MG IVP GIVEN OVER 2MINS. S/P MEDICATION HR 126 B/P 112/76 MAP 90
--- NOTE | 2018-10-13 14:00 | NUR ---
FFP INFUSION COMPLETED. NO SIGNS OF ADVERSE REACTIONS.
--- NOTE | 2018-10-13 16:28 | NUR ---
VERIFIED FFP AT BEDSIDE WITH MIN RN. INFUSION STARTED AT 400 ML/HR.
--- NOTE | 2018-10-13 17:30 | NUR ---
TRENDING HR IN 140'S, WILL MEDICATE PER EMAR.
--- NOTE | 2018-10-13 18:40 | NUR ---
FFP COMPLETED TPN RESUMED AT 80ML/HR.
--- NOTE | 2018-10-13 19:16 | NUR ---
REPORT TO ONEL BALTAZAR, ANSWERED ALL QUESTIONS AND CONCERNS. ENDORSED ALL CARE.
[2018-10-13 19:39] LABS: PLATELET COUNT 188 x10^3mcL (130-400); RED CELL DISTRIBUTION WIDTH 13.4 % (11.5-14.5)
--- NOTE | 2018-10-13 20:00 | NUR ---
Seen and examined by Dr. Veneags with no new orders. Will continue to monitor.
[2018-10-13 20:09] LABS: BAND NEUTROPHIL 14 % (0-10); MONOCYTE 1 % (0-7); SEGMENTED NEUTROPHILS 81 % (37-75); rbc morphology (normal/abnorm) NORMAL (NORMAL)
[2018-10-13 20:10] LABS: PLATELET MORPHOLOGY FEW LARGE PLATELET
[2018-10-14] VITALS (19 sets, daily range): BP systolic 120–177; BP diastolic 67–98
--- NOTE | 2018-10-14 00:20 | NUR ---
See and examined by Dr Mcgowan with no new orders. Will continue to monitor.
[2018-10-14 05:47] LABS: CALCIUM 8.2 mg/dL (8.5-10.1); CARBON DIOXIDE 22.7 mmol/L (21-32); POTASSIUM SERUM 4.2 mmol/L (3.5-5.1)
[2018-10-14 05:48] LABS: CREATININE SERUM 4.6 mg/dL (0.7-1.3)
[2018-10-14 05:52] LABS: PLATELET COUNT 178 x10^3mcL (130-400); RED CELL DISTRIBUTION WIDTH 13.1 % (11.5-14.5)
[2018-10-14 05:53] LABS: BASOPHIL % 0 % (0-2)
--- NOTE | 2018-10-14 07:45 | NUR ---
PT RECEIVED TURNED ON RIGHT SIDE, ARMS AND LEGS SUPPORTED BY PILLOWS. SCD'S ARE ON BLE AND SOFT RESTRAINTS ARE ON BILATERAL WRISTS. NO SIGNS OF SKIN BREAKDOWN OR IRRITATION UNDER SCD'S OR WRISTS. [facility] HAS FENTANYL RUNNING AT 1.29 MCG/KG/MIN, VERSED RUNNING AT 15 MG/HR, AND TPN RUNNING AT 80 ML/HR.
--- NOTE | 2018-10-14 08:14 | NUR ---
PROVIDED PT STATUS UPDATES TO DR. OSEI, ELEVATED WBC, HBG 7.4 URINE OUT PUT OVER NIGHT WAS 20ML. NG OUPUT HAS CHANGED FROM CLEAR DARK GREEN TO COFFEE GROUNG EMESIS. MADE AWARE OF J/P SANGUINEOUS WITH FOUL SMELL. RECIEVED ORDER TO INFUSE 1U OF PRBC. WILL ENTER ORDERS.
--- NOTE | 2018-10-14 08:56 | NUR ---
B/P 163/76 MAP 123 HR 133 WILL MEDICATE PER EMAR.
--- NOTE | 2018-10-14 09:06 | NUR ---
2.5MG IVP METOPROLOL GIVEN OVER 3MINS S/P B/P 129/77 MAP 96 HR 110.
--- NOTE | 2018-10-14 09:56 | NUR ---
CALLED PHARMACY TO VERIFY THAT ADMINISTERING 100MG DIFLUCAN IS OKAY DESPITE MOST RECENT BUN OF 61 AND CREATININE OF 4.6. PHARMACIST SAID IT WAS OKAY TO ADMINISTER DIFLUCAN.
--- NOTE | 2018-10-14 10:55 | NUR ---
DR. OSEI AT BEDSIDE ASSESSING PT FOR RECTUM EXAM. UPON DR. OSEI'S EXAMINATION IT WAS NOTED THAT PT HAD SMALL AMOUNTS OF BLOODY CLOTS. MD ALSO FLUSHED 10ML OF NS TO L J/P. J/P PUT BACK TO SUCTION.
--- NOTE | 2018-10-14 12:03 | NUR ---
HR 103 INCREASED MORPHINE TO 9MG/HR.
--- NOTE | 2018-10-14 12:55 | NUR ---
BLOOD ADMINISTRATION INITIATED AT 125 ML/HR BLOOD VERIFIED WITH MIN RN AT BEDSIDE, PT ID BAND, BLOOD BAND, AND BLOOD LABEL INFORMATION CHECKED.
--- NOTE | 2018-10-14 13:10 | NUR ---
NO S/S ADVERSE REACTION TO BLOOD TRANSFUSION. INCREASED RATE TO 150ML/HR.
--- NOTE | 2018-10-14 14:55 | NUR ---
BLOOD TRANSFUSION COMPLETED. NO SIGNS OF ADVERSE REACTIONS, TPN RESUMED AT 80ML/HR.
--- NOTE | 2018-10-14 15:30 | NUR ---
B/P 159/97 AP 121 HR127 WILL MEDICATE PER EMAR.
--- NOTE | 2018-10-14 15:48 | NUR ---
S/P IVP 2.5MG LOPRESSOR GIVEN HR 105 B/P 143/92 MAP 108
--- NOTE | 2018-10-14 16:10 | NUR ---
LOOMIS CARE COMPLETED
--- NOTE | 2018-10-14 16:14 | NUR ---
PROVIDED STATUS UPDATES TO DR. PRITCHARD, RECEIVED NO NEW ORDERS.
--- NOTE | 2018-10-14 18:27 | NUR ---
OSTOMY DEVICE CHANGED, SKIN CARE PROVIDED. STOMA IS PINK WITH SUTURES AROUND PERIMETER. DRAINING DARK BROWN LIQUID STOOL. PERIOSTOMAL SKIN IS INTACT WITH NO SIGNS OF LOCAL INFECTION.
--- NOTE | 2018-10-14 19:01 | NUR ---
PROVIDED UPDATES TO DR. FINCH ELEVATED WBC AND ABX ADJUSTMENTS. PER DR. FINCH TO D/C ROCEPHIN AND CLEOCIN AND START ZOSYN 3.375 Q8HRS. WILL ENTER ORDERS.
[2018-10-15] VITALS (18 sets, daily range): BP systolic 118–177; BP diastolic 74–108; Ht 188 cm; Wt 153.8 kg
--- NOTE | 2018-10-15 01:11 | NUR ---
RECEIVED REPORT FROM GIOVANNY AZEVEDO. PT IS ALERT AND RESPONSIVE TO TACTILE STIMULUS. PUPILS 3 MM AND BRISK BILATERALLY. PT IS INTUBATED AND SEDATED ON FENTANYL 1.29 MCG/KG/HR, VERSED 15 MG/HR. 8.0 ETT AT 26 CM AT LL. LUNG SOUNDS SHOW COURSE CRACKLES TO BILATERAL UPPER LOBES, DIMINISHED TO BILATERAL LOWER LOBES. VENT SETTINGS INCLUDE RATE; 12, TV: 550, PEEP: 5, O2: 30%. S1 S2 HEART SOUNDS AUSCULTATED. RIJ PATENT, DRESSING CDI. LIJ ROBB INTACT. NS INFUSING AT 5 ML/HR. TPN INFUSING AT 80 ML/HR. CAP REFILL <3 SECONDS X4. SKIN IS WARM AND CONSISTENT WITH ETHNICITY. PULSES MODERATE X2 BUE, WEAK X2 BLE. ABD IS SOFT AND ROUNDED WITH ACTIVE BOWEL SOUNDS X4Q. PT HAS CENTER SURGICAL INCISION WITH DRESSINGS AND ABD BINDER IN PLACE. LEFT JEFFREY DRAIN IN PLACE WITH SMALL AMT OF SEROSANGUINOUS DRAINAGE. PT HAS BLACK TISSUE INJURY TO BUTTOCKS WITH OPTIFOAM IN PLACE. ECCHYMOSIS TO BUE. +2 EDEMA TO BUE/BLE. ALL QUESTIONS AND CONCERNS ANSWERED.
--- NOTE | 2018-10-15 05:30 | NUR ---
FULL BED BATH WAS PROVIDED. ALL LINENS AND GOWN CHANGED. ALL SUCTION TUBING CHANGED. NEW PHOTO WAS TAKEN OF SACRAL AREA. PT TOLERATED WELL.
--- NOTE | 2018-10-15 07:00 | NUR ---
Received report from noc shift GIOVANNY Perez, all questions and concerns addressed at this time, will assume all care.
--- NOTE | 2018-10-15 07:30 | NUR ---
Received patient intubated with 8.0 ETT, 26 LL, patient on ac mode, fi02 30%, rate 12, vt 550, peep 5. Patient is sedated on fentanyl 1.29 mcg/kg/hr, versed 15 mg/hr, rss 4 as patient has a brisk response to stimuli but does not follow commands. Patient has RIJ central line infusing with all ports patent and flushing, cdi dressing noted. Patient has LIJ janie catheter, cdi dressing noted. Patient has NGT R nare connected to LIS with minimal dark drainage. Patient with surgical incision noted to ABD, CDI DRESSING and ABD binder in place, JEFFREY drain noted to suction, minimal bloody drainage noted at this time. Patient with DTI to sacral area, cdi optifoam dressing in place with zguard. Patient has babin catheter draining to gravity with minimal yellow urine, no sediment or blood noted. Patient has +2 pitting edema to bue/ble, scrotal edema also noted at this time. Patient on conveyor monitor, sinus tachycardia. Patient receiving TPN at this time at 80 ml/hr. Family at bedside, updates provided. Will continue to monitor pt.
[2018-10-15 07:36] LABS: PLATELET COUNT 173 x10^3mcL (130-400); RED CELL DISTRIBUTION WIDTH 13.6 % (11.5-14.5)
[2018-10-15 07:41] LABS: CALCIUM 8.1 mg/dL (8.5-10.1); CARBON DIOXIDE 22.3 mmol/L (21-32); MAGNESIUM 2.2 mg/dL (1.8-2.4); PHOSPHOROUS 5.1 mg/dL (2.5-4.9); POTASSIUM SERUM 4.4 mmol/L (3.5-5.1)
[2018-10-15 07:44] LABS: CREATININE SERUM 5.7 mg/dL (0.7-1.3)
[2018-10-15 08:22] LABS: BAND NEUTROPHIL 16 % (0-10); BASOPHIL 0 % (0-2); MONOCYTE 3 % (0-7); SEGMENTED NEUTROPHILS 77 % (37-75)
--- NOTE | 2018-10-15 10:00 | NUR ---
HD RN at bedside with order for HD by , order in chart and placed at this time.
--- NOTE | 2018-10-15 10:40 | NUR ---
DR. OSEI AT BEDSIDE WITH RN JOE, GIOVANNY GUERRERO, AND MYSELF FOR DRESSING CHANGE. DR. OSEI REMOVED OLD DRESSING AND IODOFORM. 2 BOTTLES OF IODOFORM INSERTED INTO INCISION. 2 2-INCH STRIPS OF XEROFORM APPLIED OVER INCISION, FOLLOWED BY 2 ABDOMINAL DRESSINGS. STERILE TECHNIQUE MAINTAINED. ABDOMINAL BINDER REAPPLIED OVER INCISION SITE. DRESSING CHANGE INFORMATION ENDORSED TO PRIMARY RN SWAPNIL, REPEAT DRESSING CHANGE SCHEDULED FOR Thursday10/17/18 BY BEDSIDE RN.
--- NOTE | 2018-10-15 12:17 | NUR ---
Follow-up Nutrition Assessment: (IC07-A) ALYSSA BARRETT 32M Dx: Severe Sepsis, Upper GI Bleed PMHx: None Labs: BG 343H, BUN 84 H, Cr 5.7 H, Ca 8.1 L, Phos 5.1 H, RBC 4.06 L, Hgb 12. 1 L, HCT 36 L Meds: Cephulac, Humulin, Lopressor, Pepcid, Zofran, Rocephin, heparin Diet: NPO (no meds), TPN Nutrition Support: TPN: D25% AA5% @80 mL/hr via central line Weights: 352 (10/10) 334 (10/12) 339 (10/13) 338, 153.8kg (10/15) Skin: lrg surgical incision w/ CDI dressing, DTI to sacral area CDI optimfoam & Zguard North: 13 I/Os: 4100/1425 (10/12) 2916/1705 (10/13) 2257/830 (10/14) 1966/320 (10/15) Edema: +2 pitting BLE/BUE GI: Abd firm, distended, round, symmetrical; colostomy RUQ Last BM: Colostomy RUQ RD note (10/15): Visited pt bedside, verified ventilation and TPN running at this time. Spoke w/ pharmacist about pt's TPN order, pt kept at 80mL/hr per MD. Noted pt's BG climbing x 3 days, but inadequate enteral nutrition to meet pt's estimated needs. Pharmacist stated insluin increased to 40 and will continue to monitor pt. Noted pt's BUN and Cr climbing as well since admission. No noted PMHx, but MD assessment 10/14 noted DM2 and HD. Estimated Nutritional Needs Based on Adjusted body weight (103.2 kg, Vent: 17.9, Temp: 37.3 C) Energy: 3016 kcal/day ([address], ICU pt on vent support) Protein: 124-155 g/day (1.2-1.5 g/kg, ABW for obesity and sepsis) Fluid: 3021 mL/day (1 mL/kcal) Nutrition Diagnosis: 10/13: Inadequate protein-energy intake r/t NPO status AEB pr meeting <80% of estimated nutrient needs. (*improving w/ TPN support). 10/15: Altered nutrition-related lab values r/t current medical condition AEB continuous elevated BG 343, BUN 84, Cr 5.7, DM2 and HD per MD assessment (01/14). Intervention 1. Continue current plan of care: D25% AA5% @80 mL/hr via central line Monitor/Evaluate Goal: Have pt meet at least 75% of estimated needs Monitor: TPN, Labs, GI function F/U in 2-3 days as high risk 10/17-10/18.
--- NOTE | 2018-10-15 12:26 | NUR ---
Recommendations: 1. Continue current plan of care: TPN D25% AA5% @80 mL/hr via central line.
--- NOTE | 2018-10-15 12:53 | NUR ---
BS 281, 9 UNITS INSULIN GIVEN. PT CALM, NO S/S OF BITING AT VENT. PT RECEIVING HEMDIALYSIS AT THIS TIME.
--- NOTE | 2018-10-15 12:55 | NUR ---
HD RN changed janie catheter dressing changed at this time.
--- NOTE | 2018-10-15 13:27 | NUR ---
at bedside, updates provided, no new orders at this time.
--- NOTE | 2018-10-15 13:54 | NUR ---
RECEIVED ORDER FROM DR. DE LEÓN, HEPARIN 3000 UNITS TO BE GIVEN TO HEMODIALYSIS NURSE S/P HEMDIALYSIS. ORDER NOTED AND CARRIED OUT.
--- NOTE | 2018-10-15 14:09 | NUR ---
HEMODIALYSIS COMPLETED, 4 LITERS OUTPUT. PT TOLERATED PROCEDURE WELL.
--- NOTE | 2018-10-15 15:15 | NUR ---
Patient moved from bed 7 to bed 8 without incident. Upon transfer patient vomiting, NGT connected to suction, 600 ML coffee ground emesis noted at this time. CRUSHING MILL OPERATOR Munira notified, stat cbc and consult noted to be ordered at this time.
[2018-10-15 15:33] LABS: PLATELET COUNT 276 x10^3mcL (130-400); RED CELL DISTRIBUTION WIDTH 13.3 % (11.5-14.5)
[2018-10-15 15:59] LABS: BAND NEUTROPHIL 5 % (0-10); METAMYELOCTE 2 % (0-2); MONOCYTE 4 % (0-7); SEGMENTED NEUTROPHILS 86 % (37-75)
--- NOTE | 2018-10-15 16:00 | NUR ---
at bedside, updates provided, per dr tovar dic panel.
[2018-10-15 16:02] LABS: PLATELET MORPHOLOGY PLATELETS NORMAL; rbc morphology (normal/abnorm) ABNORMAL (NORMAL)
--- NOTE | 2018-10-15 16:03 | NUR ---
WOUND CARE EVALUATION NOTE: REASON FOR EVALUATION: BUTTOCKS WOUND SKIN ASSESSMENT DONE WITH PRIMARY RN WITH THIS 32 Y/O MALE PT [place] [facility] [place] AND VOMITED WITH COFFEE GROUND EMESIS. NEW ONSET DM. PT. HAS CHOLECYSTECTOMY IN EARLY OCTOBER. ALL ABOVE INFORMATION OBTAINED FROM ADMISSION H&P. LABS ARE WBC 20.9, H/H 8.3/24, GLUCOSE 343 AND ALBUMIN 1.0. PATIENT REMAINS INTUBATED AND SEDATED. SKIN IS WARM AND DRY, BLE FEW HAIR GROWTH, GENERNAL EDEMA. DORSAL PEDAL PULSES PRESENT AND DIMINISHED DUE TO +2 EDEMA. CAPILLARY REFILLED < 2 SEC. X 10 TOES. PT. IS ON TPN. PER CN ABDOMINAL SURGICAL WOUND DRESSING CHANGED BY DR. OSEI, COLOSTOMY BAG, IN PLACE ABDOMINAL DRESSING DCI AND JEFFREY DRAIN IN PLACE. ABDOMINAL BINDER IN PLACE. PLAN OF CARE DISCUSSED WITH PRIMARY RN. TELEPHONE REPORT TO OPHELIA HERBERT NP, OF PT'S CHANGE OF SKIN CONDITION WITH TREATMENT PLAN. COMORBIDITIES RELATED TO DELAY WOUND HEALING AND FURTHER SKIN BREAKS: INFECTION, DM, KIDNEY FAILURE WITH HD, VERY LOW ALBUMIN LEVEL AND HOB ELEVATED THE MAJORY OF TIMES DUE TO MEDICAL REASONS. INTEGUMENTARY: - LLQ ABDOMINAL JEFFREY DRAIN SECURED WITH SUTURES. - RLQ ABDOMINAL COLOSTOMY, STOMA BEEFY RED, FUNCTIONING WITH DARK BROWN STOOL OUTPUT, ELISE-STOMA SKIN INTACT -MID ABDOMEN SURGICAL WOUND DRESSING DCI -MOISTURE ASSOCIATE DERMATITIS (MAD) TO: B/L GROINS EXTENDED TO SCROTAL AREA SCROTUMS EDEMA, SKIN INTACT -PRESSURE ULCER INJURY DTI RIGHT BUTTOCK 100% KIANA, SKIN DENUDED, 9X4CM WITH SURROUNDING REDNESS WITH PIN POINTS BLISTERS EXTENDED L BUTTOCK INDICATED FURTHER DAMAGE -PRESSURE ULCER INJURY STAGE 2 TO LEFT BUTTOCK 3X2X0.1CM, SURROUNDING SKIN DTI EXTENDED TO LEFT ISCHIUM INDICATED FURTHER DAMAGE -PRESSURE ULCER INJURY STAGE 1 TO SACROCOCCYX 2X2CM, SKIN INTACK, SURROUNDING REDNESS EXTENDED TO RIGHT INNER BUTTOCK DTI INDICATED FURTHER DAMAGE -BLANCHABLE REDNESS TO R/L HEELS RECOMMENDATIONS: -CONTINUE TO FOLLOW SURGEON INSTRUCTIONS FOR ABDOMINAL SURGICAL WOUND -APPLY HYDRAGUARD TO R/L GROINS EXTENDED TO SCROTAL AREA BID AND PRN IF SOILING -CLEANSE RIGHT AND LEFT BUTTOCKS WOUNDS WITH NS. SOLUTION, PAT DRY GENTALLY AND APPLY Z-GUARD, COVER WITH OPTIFOAM DRESSING QD AND PRN IF SOILING -APPLY FOAM DRESSING TO SACROCOCCY Q DAY AND PRN IF SOILING -APPLY HEEL PROTECTORS TO BILATERAL HEELS AT ALL TIMES -OFFLOAD BILATERAL HEELS BY PLACING PILLOWS UNDER CALVES UNLESS OTHERWISE CONTRAINDICATED -PRESSURE REDISTRIBUTION SURFACE THERAPY -TURN AND REPOSITION Q2H, OFFLOAD SACRALCOCCYX AND BUTTOCKS BY TURNING RIGHT AND LEFT -CONTINUE TO FOLLOW RD RECOMMENDATIONS ALL ABOVE RECOMMENDATIONS DISCUSSED WITH PRIMARY RN. AND SUPERVISOR DENTAL LABORATORY KEON WILL FOLLOW UP PT Q7-10 DAYS. PLEASE CONTACT WOUND CARE NURSE FOR ANY QUESTION AND CHANGE OF WOUND CONDITION.
--- NOTE | 2018-10-15 16:43 | NUR ---
FULL BED BATH WITH GOWN AND LINEN CHANGED AT THIS TIME, CHG WIPES APPLIED AND LOOMIS CARE GIVEN AT THIS TIME PER PROTOCOL.
--- NOTE | 2018-10-15 17:13 | NUR ---
Spoke to mother at bed side with family friends and update pt. skin condition, all question answered, all risk factors r/t skin breaks explained, also to clarified pt is not a DM.
--- NOTE | 2018-10-15 19:30 | NUR ---
REC'D REPORT FROM SWAPNIL BALTAZAR TO ASSUME CARE. PT INTUBATED AND SEDATED ON FENTANYL 1.29 MCG/KG/HR, VERSED 15 MG/HR WITH RSS 4. UNABLE TO FOLLOW COMMANDS WHEN AWAKE, PT BECOMES RESTLESS. PERRLA NOTED. 8.0 ETT SECURED, 24 CM @ LL. NO JVD NOTED. TRACHEA MIDLINE. R NARE NGT TO LOW INT SUCTION, 500ML COFFEE GROUND EMESIS NOTED. RIJ CVC INTACT PORTS PATENT, DSG CDI. LIJ ROBB CATH INTACT, PORTS PATENT, DSG CDI.ETT TO VENT: AC MODE RATE 12, TV 550, PEEP 5, FIO2 30%. CHEST RISE EQUAL AND SYMMETRICAL. LUNG SOUNDS COARSE CRACKELS BUL, DIM BASES. BP 149/83 MAP 108, HR 111. CHEST WALL STABLE.PULSES PALPABLE X4. BUE 2+ PITTING EDEMA, BLE NON-PITTING EDEMA NOTED. FLEXI BOOTS IN PLACE. BLE SCDS IN PLACE.BEDBOUND, TOTAL CARE. TURNED AND REPOSITIONED Q2H FOR PRESSURE RELIEF. TPN INFUSING @ 80ML/HR. ABD OBESE, DISTENDED AND FIRM. ABSENT BOWEL SOUNDS. LEFT ABD INCISION WITH JEFFREY DRAIN NOTED WITH SANGUINEOUS FLUID NOTED. COLOSTOMY BAG IN PLACE, WITH SMALL AMT OF STOOL NOTED. F/C INTACT AND DRAINING VIA GRAVITY LIEN COLORED URINE. SCROTAL EDEMA NOTED. LEFT ABD INCISION WITH WOUND BINDER AND LEFT JEFFREY DRAIN IN PLACE. BUE ECCHYMOSIS. SACRAL DTI WITH OPEN WOUND, OPTIFOAM IN PLACE. TURNED AND REPOSITIONED Q2H FOR SKIN MANAGEMENT. ISOGEL MATTRESS IN PLACE. FAMILY MEMBERS AT BEDSIDE. ALL NEEDS MET AT THIS TIME. WILL CONTINUE TO MONITOR.
--- NOTE | 2018-10-15 22:10 | NUR ---
ASSISTED RT VIRIDIANA IN REPLACING ANCHORFAST SHERLEY & BITE BLOCK AT THIS TIME. ETT SECURED IN BETTER PLACEMENT, Pt SUCTIONED AND OBTAINING ADEQUATE PARAMETERS ON VENTILATOR.
--- NOTE | 2018-10-15 22:43 | NUR ---
PTS MOTHER AND FAMILY MEMBERS AND DR. TRUJILLO AT BEDSIDE, UPDATED ON CURRENT CONDITION AND ORDER TO TRANSFER TO [facility] WITH ACCEPTING PHYSICIAN AND BED AVAILABLE. ALL QUESTIONS AND CONCERNS ADDRESSED AT THIS TIME.
--- NOTE | 2018-10-15 23:02 | NUR ---
REPORT GIVEN TO KRISTI BALTAZAR AT [facility].
--- NOTE | 2018-10-16 00:24 | NUR ---
PT PICKED UP BY [facility] WITH 2 TRANSIT DEPARTMENT CLERK AND 1 RN REPORT GIVEN TO RN NURSE. ALL QUESTIONS AND CONCERNS ADDRESSED. FENTANYL GTT AND VERSED GTT REMAINING SIGNED OFF TO RN WITH 20ML REMAINING IN EACH BAG. TPN INFUSING @ 80ML/HR, RN AGREED TO TRANSFER PT WITH TPN. F/C EMPTIED 100ML YELLOW URINE. JEFFREY DRAIN EMPTIED 50ML SANGUINOUS FLUID. R NARE NGT CLAMPED, 900ML COFFEE GROUND EMESIS EMPTIED IN CANISTER. 8.0 ETT SECURED AT 24 CM LL. ABD BINDER REMAINS IN PLACE WITH NO ACTIVE BLEEDING NOTED. SACRAL AREA OPTIFOAM DSG CDI. RIJ CVC INTACT, PORTS PATENT, DSG CDI. LIJ QUINTION CATH INTACT, DSG CDI. KRISTI RN AT [facility] CALLED AND MADE AWARE REGARDING ETA OF 30 MINS. PT HAD NO BELONGINGS. ENOCH AND FAMILY MEMBERS AT BEDSIDE AT TRANSFER.
--- NOTE | 2018-10-16 07:35 | NUR ---
ECHOCARDIOGRAM NOT DONE-DISCHARGED
== END 2018-10-16 00:20 | disposition short-term general hospital (02) | DRG 853 ==
LOC: ED 07:14 → IC 09:02
PROVIDERS: Anesthesiology; Internal Medicine; Specialist; Surgery; ADMIT Family Medicine
PROC: 0WJG4ZZ Inspection of Peritoneal Cavity, Percutaneous Endoscopic Approach (ICD-10-PCS; 2018-10-07)
PROC: 0D1L0Z4 Bypass Transverse Colon to Cutaneous, Open Approach (ICD-10-PCS; 2018-10-07)
PROC: 0D9A0ZZ Drainage of Jejunum, Open Approach (ICD-10-PCS; 2018-10-07)
PROC: 5A1955Z Respiratory Ventilation, Greater than 96 Consecutive Hours (ICD-10-PCS; 2018-10-07)
PROC: 0BH18EZ Insertion of Endotracheal Airway into Trachea, Via Natural or Artificial Opening Endoscopic (ICD-10-PCS; 2018-10-07)
PROC: 0DBG0ZZ Excision of Left Large Intestine, Open Approach (ICD-10-PCS; principal; 2018-10-07 14:30)
PROC: 05HN33Z Insertion of Infusion Device into Left Internal Jugular Vein, Percutaneous Approach (ICD-10-PCS; 2018-10-08)
PROC: B544ZZA Ultrasonography of Left Jugular Veins, Guidance (ICD-10-PCS; 2018-10-08)
PROC: 30233K1 Transfusion of Nonautologous Frozen Plasma into Peripheral Vein, Percutaneous Approach (ICD-10-PCS; 2018-10-13)
PROC: 30233N1 Transfusion of Nonautologous Red Blood Cells into Peripheral Vein, Percutaneous Approach (ICD-10-PCS; 2018-10-14)
DX: A41.9 Sepsis, unspecified organism (principal); R65.21 Severe sepsis with septic shock; K63.1 Perforation of intestine (nontraumatic); E43 Unspecified severe protein-calorie malnutrition; J96.00 Acute respiratory failure, unspecified whether with hypoxia or hypercapnia; N17.0 Acute kidney failure with tubular necrosis; K56.7 Ileus, unspecified; Z90.49 Acquired absence of other specified parts of digestive tract; Z53.31 Laparoscopic surgical procedure converted to open procedure; E11.9 Type 2 diabetes mellitus without complications; E66.9 Obesity, unspecified; K76.0 Fatty (change of) liver, not elsewhere classified
CPT/HCPCS: 36600; 82962; 83880; 84439; 85378; A4628; C1751; G0378; J0330; J0696; J1170; J1450; J1642; J1644; J1720; J1815; J1940; J2250; J2270; J2370; J2543; J2704; J3010; J3475; J3490; J7030; J7040; J7050; J7120; J7131; P9016; P9045; P9047; P9059; Q0092